=== PATIENT | male | born 1995 | race Caucasian/White ===

== ENCOUNTER 2021-08-30 11:13 | Emergency (ER) | payer OTHER, SELFPAY ==
[2021-08-30 11:22] VITALS: BP 144/90; PULSE 84; RESP 17; TEMP 36.9; O2SAT 98; BMI 28.8
--- NOTE | 2021-08-30 11:29 | ED_ITS ---
HPI - Dental/Oral General: Chief complaint: Dental/Oral Stated complaint: DENTAL/ORAL Time Seen by Provider: 08/30/21 11:29 Source: patient Mode of arrival: ambulatory Limitations: no limitations History of Present Illness: HPI Narrative: Patient is a 26-year-old male presents to ED today with a complaint of dental pain. Patient states approximately 3 days ago he had a dental procedure performed (unsure of what they actually did). He states he did not have any extractions but that the dentist drilled on his teeth and states the overall procedure was extremely uncomfortable. He states since then he has continued to have significant pain and feels like he is having left-sided facial swelling. He has tried OTC analgesics without much relief. MD Complaint: tooth pain Teeth map: 1. area of pain Duration: constant Severity: severe Relieving factors: nothing Exacerbating factors: nothing Context: history of dental caries Associated symptoms: Reports no associated symptoms; Denies ear or mastoid pain or fever(s) Treatment prior to arrival: oral analgesic Review of Systems Const: Denies: fever(s), chills, body aches, fatigue or malaise Eyes: Denies: change in vision, blurry vision, photophobia or eye discharge ENMT: Reports: dental pain; Denies: swelling of lips/tongue, oral sores, bleeding gums, ear or mastoid pain, nasal discharge or nasal congestion Card: Denies: chest pain Resp: Denies: dyspnea GI: Denies: abdominal pain, nausea or vomiting Musc: Denies: neck pain Skin/Breast: Denies: rash Neuro: Denies: headache(s) Physical Exam Const: COMMON NORMALS: no acute distress, average body habitus, patient oriented x3, no limitations, healthy appearing, alert and well nourished HENMT: COMMON NORMALS: normocephalic, atraumatic, hearing grossly normal bilaterally, external ears normal, EAC's normal, TM's normal bilaterally, Normal external nose present, Normal nasal mucous membranes and turbinates present, moist oral mucous membranes, oropharynx normal and gingiva normal HEAD & SCALP: normal to inspection, normocephalic and atraumatic FACE & SINUS: normal facial exam NOSE: Normal external nose present and Normal nasal mucous membranes and turbinates present EXTERNAL EAR: Yes external ears normal EXTERNAL AUDITORY CANAL: EAC's normal TYMPANIC MEMBRANE: TM's normal bilaterally MOUTH: Normal oral and palatal mucosa present, lip normal and tongue normal TEETH & GINGIVA: Yes other (several silver fillings noted; no severe decay; no obvious abscess) THROAT: posterior oropharynx normal, tonsils normal and uvula midline Eye: GENERAL EYE: appearance normal, both eyes and all related structures Neck/C-Spine: COMMON NORMALS: full ROM, no lymphadenopathy and no meningeal signs GENERAL: Yes normal visual inspection, No anterior neck swelling and No submandibular swelling Cardio: COMMON NORMALS: regular rate, regular rhythm and No murmurs present (Cardio) RATE: regular rate RHYTHM: regular rhythm Neuro: COMMON NORMALS: patient oriented x3 SENSORIUM/ORIENTATION: Yes alert MENINGEAL SIGNS: Yes no meningeal signs Skin: COMMON NORMALS: no rashes or lesions noted GENERAL SKIN EXAM: no rashes or lesions noted Course Vital Signs: Vital signs: Vital Signs Temperature 98.4 F 08/30/21 11:22 Pulse Rate 84 08/30/21 11:22 Respiratory Rate 17 08/30/21 11:22 Blood Pressure 144/90 08/30/21 11:22 Pulse Oximetry 98 08/30/21 11:22 Discharge Plan Discharge Patient Disposition: Home Clinical Impression: Toothache Condition: Stable Prescriptions: New ibuprofen 800 mg tablet 800 mg PO Q8H PRN (Reason: pain) Qty: 20 RF: 0 penicillin V potassium 500 mg tablet 500 mg PO Q8H 7 Days Qty: 21 RF: 0 tramadol 50 mg tablet 50 mg PO Q6H PRN (Reason: pain) Qty: 8 RF: 0 Discharge Orders: Discharge ED (Routine); Ordered 08/30/21 Ordered By: Deidra Sawyer Patient Instructions: Dental Caries (Cavities), Toothache (ED) Coding Level of Care Code ED Social Media Marketing Specialist for Ted Teague
== END 2021-08-30 11:50 | disposition home or self-care (01) ==
PROVIDERS: Emergency Provider Physician Assistant
DX: K08.89 Other specified disorders of teeth and supporting structures (principal)
CPT/HCPCS: 99281

== ENCOUNTER → 2021-09-27 11:39 | Outpatient (BNVA) | payer OTHER, SELFPAY | PROVIDERS: Visit Provider Nurse Practitioner Family | DX: R05.9 Cough, unspecified (principal) | CPT/HCPCS: 87635 ==

== ENCOUNTER → 2021-10-02 09:56 | Outpatient (BNVA) | payer OTHER, SELFPAY | PROVIDERS: Visit Provider Nurse Practitioner Family | DX: J40 Bronchitis, not specified as acute or chronic (principal); R05.9 Cough, unspecified | CPT/HCPCS: 71046; 80053; 87635 ==

== ENCOUNTER 2022-03-28 19:07 | Emergency (ER) | payer OTHER, MEDICAID, SELFPAY ==
[2022-03-28 19:24] VITALS: BP 156/99; PULSE 80; RESP 16; TEMP 36.5; O2SAT 96
--- NOTE | 2022-03-28 21:50 | W.ED.GENADLT ---
HPI - General Adult General: Chief complaint: General Medical Stated complaint: Legs swelling/pain Time Seen by Provider: 03/28/22 21:50 History of Present Illness: Mr Burt is a 36-year-old gentleman with complex past medical history presenting to the emergency department due to generalized symptoms. He endorses bilateral lower extremity swelling and discomfort that started gradually approximately 1 week ago. He endorses a history of DVT which was suspected to be provoked to the left lower extremity and has noticed some asymmetric swelling. He is not currently on anticoagulation. He also endorses a tick bite on his buttocks, he is unsure of exactly how long that was attached however did seek care and tick was removed and feels overall that this is improved. He endorses headache and generalized malaise. Subjective fevers and chills. Overall course of symptoms has persisted. Intensity is moderate. No other specific changes in health, exacerbating, or alleviating factors identified. Onset (ago): week(s) Severity: moderate Pain Consistency: constant Exacerbating factors: movement Review of Systems General: Reports: 10 or more systems reviewed and unremarkable except in HPI and below PFSH ED PFSH: Medical History (Updated 04/06/22 @ 00:00 by ) History of cervical fracture History of DVT (deep vein thrombosis) History of syphilis Social History Smoking and tobacco status: never smoked Physical Exam Const: COMMON NORMALS: alert GENERAL APPEARANCE: cooperative, well developed and ill appearing (Mildly) HENMT: COMMON NORMALS: normocephalic and atraumatic HEAD & SCALP: normocephalic and atraumatic Eye: COMMON NORMALS: conjunctivae normal CONJUNCTIVA: Yes conjunctivae normal SCLERA: sclerae normal Neck/C-Spine: COMMON NORMALS: supple GENERAL: Yes trachea midline Resp: COMMON NORMALS: normal respiratory effort and clear to auscultation bilaterally EFFORT & INSPECTION: Yes able to speak in complete sentences AUSCULTATION: clear to auscultation bilaterally Cardio: COMMON NORMALS: regular rate and regular rhythm RATE: regular rate RHYTHM: regular rhythm GI: COMMON NORMALS: Soft to palpation PALPATION: Yes Soft to palpation and No Tenderness to palpation present (GI) PERCUSSION: normal to percussion Extremity: GENERAL: Yes normal exam except as noted and No edema Neuro: COMMON NORMALS: moves all extremities SENSORIUM/ORIENTATION: Yes alert and No Orientation impaired Psych: COMMON NORMALS: mental status grossly normal and Normal thought process present THOUGHT PROCESS: Normal thought process present Skin: NARRATIVE SKIN EXAM: Small erythematous lesion remains from reported site of tick bite on right infra gluteal fold. No targetoid rash. Appears to be healing well without evidence of superimposed infection. Course ED course: - Patient was seen and evaluated by me at bedside - Patient placed on cardiac monitors, IV access obtained - Initial evaluation notable for exam as above - Labs and xrays personally interpreted by me -Fluids and symptom treatment ordered - Labs notable for no significant abnormality to explain symptoms, panel pending. - Imaging notable for no lobar consolidation or pneumothorax. Negative DVT study. - Upon serial reexamination after treatment the patient was improved - Based on patient history, evaluation, and testing as interpreted the most likely cause of the patient's condition is unclear, given generalized symptoms with history of tick bite and unknown attached time I will plan to treat empirically. Risk-benefit discussed. - The results of ED evaluation were discussed with the patient including prescriptions and/or symptomatic cares (if applicable) including appropriate and responsible use, followup plan, and return precautions. The patient verbalized understanding and felt safe for discharge. - Patient discharged in satisfactory condition. Note: Click bubbles or prepopulated more[place] in note writing are used for assistance with data collection and billing and are inherently more limited than narrative and other text portions of this note. Please use narrative for additional clinical history and defer to narrative/free test for any case of contradictory information. If information appears in only free text or click bubble it should be considered present or absent as reported. Please contact note typewriter operator automatic for clarifications of clinical information or contradictory information. MDM is a brief summary, contradictory or erroneous seeming information should be clarified and full note should be reviewed. Vital Signs: Vital signs: Vital Signs Temperature 98.3 F 03/29/22 00:43 Pulse Rate 62 03/29/22 02:10 Respiratory Rate 18 03/29/22 02:10 Blood Pressure 139/77 03/29/22 02:10 Pulse Oximetry 95 03/29/22 02:10 MDM - General Adult Medical Decision Making 36-year-old gentleman presenting with generalized symptoms and concern over leg swelling with history of DVT. Patient does have history of declined. Labs and imaging unremarkable. I will treat empirically with tick panel pending. Satisfactory for outpatient management. Medical Records I reviewed the patient's medical records. Lab Data I reviewed the patient's lab results. : 03/28/22 22:15 03/28/22 22:15 Radiology Impressions Venous Duplex 03/28/22 22:12 IMPRESSION: No evidence of deep vein thrombosis. Chest X-Ray 03/28/22 23:27 IMPRESSION: 1. No definite CHF or pneumonia. 2. Other findings discussed above. Laboratory Results WBC 9.9 10^3/uL (4.0-10.0) 03/28/22 22:15 RBC 4.85 10^6/uL (4.1-5.3) 03/28/22 22:15 Hgb 15.5 g/dL (11.7-16.6) 03/28/22 22:15 Hct 44.9 % (42.0-52.0) 03/28/22 22:15 MCV 92.6 fl (80-94) 03/28/22 22:15 MCH 32.0 pg (28.0-34.0) 03/28/22 22:15 MCHC 34.5 g/dL (30.0-36.0) 03/28/22 22:15 RDW 12.7 % (12.1-15.1) 03/28/22:15 Plt Count 309 10^3/cmm (130-400) 03/28/22 22:15 MPV 8.8 fL (7.4-10.4) 03/28/22 22:15 Neut % (Auto) 53.6 % 03/28/22 22:15 Lymph % (Auto) 29.9 % 03/28/22 22:15 Sharkey % (Auto) 11.1 % 03/28/22 22:15 Eos % (Auto) 4.0 % 03/28/22 22:15 Baso % (Auto) 0.7 % 03/28/22 22:15 Neut # (Auto) 5.33 10^3/uL (1.8-7.7) 03/28/22 22:15 Lymph # (Auto) 3.0 10^3/uL (0.8-4.8) 03/28/22 22:15 Sharkey # (Auto) 1.1 10^3/uL (0.2-0.9) H 03/28/22 22:15 Eos # (Auto) 0.4 10^3/uL (0.0-0.8) 03/28/22 22:15 Baso # (Auto) 0.1 10^3/uL (0.0-0.1) 03/28/22 22:15 Nucleated RBC % (auto) 0 % 03/28/22 22:15 Nucleated RBCs # 0.0 /100WBC 03/28/22 22:15 Sodium 142 mmol/L (136-145) 03/28/22 22:15 Potassium 4.4 mmol/L (3.5-5.1) 03/28/22 22:15 Chloride 107 mmol/L (98-107) 03/28/22 22:15 Carbon Dioxide 26 mmol/L (22-29) 03/28/22 22:15 Anion Gap 13.4 (5-19) 03/28/22 22:15 BUN 17 mg/dL (6-20) 03/28/22 22:15 Creatinine 0.9 mg/dL (0.7-1.2) 03/28/22 22:15 GFR Calculation 94.4 mL/min (90-130) 03/28/22 22:15 Glucose 98 mg/dL (65-115) 03/28/22 22:15 Calculated Osmolality 296 mOsm/kg (285-295) H 03/28/22 22:15 Lactate 1.1 mmol/L (0.5-2.2) 03/28/22 22:15 Calcium 9.3 mg/dL (8.5-10.5) 03/28/22 22:15 Total Bilirubin 0.2 mg/dL (0.15-1.2) 03/28/22 22:15 AST 18 U/L (0-40) 03/28/22 22:15 ALT 24 U/L (0-41) 03/28/22 22:15 Alkaline Phosphatase 88 IU/L (40-130) 03/28/22 22:15 Creatine Kinase 45 U/L (39-308) 03/28/22 22:15 NT-Pro-B Natriuret Pep 274 pg/mL (0-125) H 03/28/22 22:15 Total Protein 6.7 g/dL (6.6-8.7) 03/28/22 22:15 Albumin 4.1 g/dL (3.5-5.2) 03/28/22 22:15 Globulin 2.6 g/dL (1.3-4.6) 03/28/22 22:15 Procalcitonin 0.08 ng/mL (0-0.5) 03/28/22 22:15 Urine Color Yellow (Yellow) 03/28/22 23:35 Urine Appearance Clear (CLEAR) 03/28/22 23:35 Urine pH 6.5 (5-7) 03/28/22 23:35 Ur Specific [place] 1.020 (1.005-1.030) 03/28/22 23:35 Urine Protein Neg (Negative) 03/28/22 23:35 Urine Glucose (UA) Norm (Normal) 03/28/22 23:35 Urine Ketones Negative (Negative) 03/28/22 23:35 Urine Blood Neg (Negative) 03/28/22 23:35 Urine Nitrate Negative (Negative) 03/28/22 23:35 Urine Bilirubin Neg (Negative) 03/28/22 23:35 Urine Urobilinogen Norm mg/dL (Negative) 03/28/22 23:35 Ur Leukocyte Esterase Negative (Negative) 03/28/22 23:35 Urine Opiates Screen Positive ng/mL (Negative) H 03/28/22 23:35 Ur Barbiturates Screen Negative ng/mL (Negative) 03/28/22 23:35 Ur Phencyclidine Scrn Negative ng/mL (Negative) 03/28/22 23:35 Ur Amphetamines Screen Negative ng/mL (Negative) 03/28/22 23:35 U Benzodiazepines Scrn Negative ng/mL (Negative) 03/28/22 23:35 Urine Cocaine Screen Negative ng/mL (Negative) 03/28/22 23:35 U Marijuana (THC) Screen Negative ng/mL (Negative) 03/28/22 23:35 Lyme Ab (Western Blot) <0.90 index 03/28/22 22:15 Coronavirus 229E (PCR) Not detected (NOT DETECT) 03/28/22 23:15 E. chaffeensis IgG Ab <1:64 03/28/22 22:15 E. chaffeensis IgM Ab <1:20 03/28/22 22:15 E. chaffeensis Interp See note 03/28/22 22:15 E. chaffeensis Comment Not Reportable 03/28/22 22:15 Rickettsia IgG Ab Not detected 03/28/22 22:15 Rickettsia IgM Ab Not detected 03/28/22 22:15 SARS-CoV-2 (PCR) Not detected (NOT DETECT) 03/28/22 23:15 Discharge Plan Discharge Patient Disposition: Home Clinical Impression: Tick bite, Fatigue, Myalgia Condition: Stable Prescriptions: New doxycycline hyclate 100 mg tablet 100 mg PO Q12H 14 Days Qty: 28 0RF No Action albuterol sulfate [ProAir HFA] 90 mcg/actuation HFA aerosol inhaler 2 puff inhalation QID PRN (Reason: shortness of breath or wheezing) Qty: 8.5 6RF fluoxetine 60 mg tablet 60 mg PO QAM 30 Days Qty: 30 6RF clonazepam 1 mg tablet 1 mg PO TID 30 Days Qty: 90 0RF ketorolac 10 mg tablet 10 mg PO QID 5 Days Qty: 20 0RF cyclobenzaprine 10 mg tablet 10 mg PO TID PRN (Reason: muscle spasm) Qty: 90 0RF Discharge Orders: Discharge ED (Routine); Ordered 03/29/22 Ordered By: Yoshi Gill Discharge Diet: Usual diet Discharge Activity: Increase activity as tolerated Patient Instructions: Tick Bite (ED), Musculoskeletal Pain (ED), Leg Pain (ED), Opioid Safety Activity Restrictions/Additional Instructions: Thank you for visiting the emergency department. You were seen and evaluated for leg pain with swelling and generalized symptoms. The exact cause of your symptoms is unclear. No evidence of DVT was identified on ultrasound. If symptoms persist you should follow-up with your primary care provider for consideration of repeat ultrasound to further evaluate smaller calf veins. Given your history of tick bite and negative viral studies I will treat you with a course of antibiotics for possible tickborne illness. I will also prescribe ketorolac, do not combine this with other NSAIDs, please take either prescribed PPI or [id number] medication for GI protection while taking ketorolac. Please return to the emergency department for worsening symptoms or anything else that you are concerned about a feel needs emergency department evaluation. Stand Alone Forms: Work/School Release Coding Level of Care Code ED Bobcat Operator for Ted Fwd Exam Comprehensive
--- NOTE | 2022-03-28 22:12 | USR_ITS ---
PROCEDURE INFORMATION: Exam: US Duplex Lower Extremity Veins, Bilateral Exam date and time: 03/28/2022 10:34 PM Age: 36 years old Clinical indication: Swelling (edema) of limb; Lower extremity, bilateral; Additional info: Leg swelling, HX dvt TECHNIQUE: Imaging protocol: Real-time Duplex ultrasound of the bilateral extremities with 2-D redd scale, color Doppler flow and spectral waveform analysis with image documentation. Complete exam focused on the bilateral lower extremity veins. COMPARISON: No relevant prior studies available. FINDINGS: Right deep veins: Unremarkable. The common femoral, femoral, proximal profunda femoral and popliteal veins are patent without thrombus. Normal Doppler waveforms. Normal compressibility and/or augmentation response. Right superficial veins: Saphenofemoral junction is patent without thrombus. Left deep veins: Unremarkable. The common femoral, femoral, proximal profunda femoral and popliteal veins are patent without thrombus. Normal Doppler waveforms. Normal compressibility and/or augmentation response. Left superficial veins: Saphenofemoral junction is patent without thrombus. Soft tissues: Unremarkable. US/CV venous duplex [facility] [id number] IMPRESSION: No evidence of deep vein thrombosis.
[2022-03-28 22:26] LABS: Basophils # 0.1 10^3/uL (0.0-0.1); Basophils % 0.7 %; Eosinophils # 0.4 10^3/uL (0.0-0.8); Hematocrit 44.9 % (42.0-52.0); Hemoglobin 15.5 g/dL (11.7-16.6); Lymphocytes % 29.9 %; Mean Corpuscular HGB Conc 34.5 g/dL (30.0-36.0); Mean Corpuscular Volume 92.6 fl (80-94); Mean Platelet Volume 8.8 fL (7.4-10.4); Monocytes # 1.1 10^3/uL (0.2-0.9); Monocytes % 11.1 %; Neutrophils # 5.33 10^3/uL (1.8-7.7); Neutrophils % 53.6 %; Nucleated Red Blood Cells % 0 %; Platelet Count 309 10^3/cmm (130-400); Red Blood Count 4.85 10^6/uL (4.1-5.3); Red Cell Distribution Width 12.7 % (12.1-15.1); White Blood Count 9.9 10^3/uL (4.0-10.0)
[2022-03-28 22:49] LABS: Lactate (Lactic Acid level) 1.1 mmol/L (0.5-2.2)
[2022-03-28 22:59] LABS: NT Pro B Type Natriuretic Pept 274 pg/mL (0-125); Procalcitonin 0.08 ng/mL (0-0.5)
[2022-03-28 23:00] VITALS: RESP 14; O2SAT 99
[2022-03-28] MEDS: morphine 4 mg/mL SDV 1 mL IVP (23:00)
[2022-03-28 23:10] LABS: Alanine Aminotransferase 24 U/L (0-41); Albumin Level 4.1 g/dL (3.5-5.2); Alkaline Phosphatase 88 IU/L (40-130); Anion Gap 13.4 (5-19); Aspartate Amino Transferase 18 U/L (0-40); Blood Urea Nitrogen 17 mg/dL (6-20); Calcium 9.3 mg/dL (8.5-10.5); Carbon Dioxide 26 mmol/L (22-29); Chloride 107 mmol/L (98-107); Creatine Phosphokinase 45 U/L (39-308); Globulin 2.6 g/dL (1.3-4.6); Glomerular Filtration Rate 94.4 mL/min (90-130); Glucose 98 mg/dL (65-115); Osmolality Calculated 296 mOsm/kg (285-295); Potassium 4.4 mmol/L (3.5-5.1); Sodium 142 mmol/L (136-145); Total Bilirubin 0.2 mg/dL (0.15-1.2); Total Protein 6.7 g/dL (6.6-8.7)
[2022-03-28 23:19] VITALS: BP 130/90; PULSE 68; RESP 16; O2SAT 94
--- NOTE | 2022-03-28 23:27 | XRR_ITS ---
PROCEDURE INFORMATION: Exam: XR Chest Exam date and time: 03/28/2022 11:33 PM Age: 36 years old Clinical indication: Patient HX: Bilateral lower leg edema. TECHNIQUE: Imaging protocol: Radiologic exam of the chest. Views: 1 view. COMPARISON: CR XR chest 2V* [id number] 10/02/2021 10:03 AM FINDINGS: Lungs: No CHF/pulmonary edema. Poor inspiration somewhat limits evaluation, especially of the lung bases. Visible lungs appear essentially clear. Pleural spaces: No visible pneumothorax. No definite pleural fluid. Heart/Mediastinum: Heart size is likely upper range of normal/mildly prominent, allowing for poor inspiration. Bones/joints: No significant acute finding. XR/XR chest 1V portable [id number] IMPRESSION: 1. No definite CHF or pneumonia. 2. Other findings discussed above.
[2022-03-28 23:30] VITALS: BP 138/87; PULSE 71; RESP 14; O2SAT 95
[2022-03-28] MEDS: sodium chloride 0.9% 1,000 ML 999 ML IV (23:35)
[2022-03-28 23:42] LABS: Add Urine Microscopic? NO; Charge for UA Resulting for Rev
[2022-03-28 23:44] LABS: Bilirubin Urine Neg (Negative); Blood Urine Neg (Negative); Glucose Urine UA Norm (Normal); Ketones Urine Negative (Negative); Leukocyte Esterase Urine Negative (Negative); Nitrate Urine Negative (Negative); Protein Urine Neg (Negative); Urine Appearance Clear (CLEAR); Urine Color Yellow (Yellow); Urobilinogen Urine Norm (Negative); pH Urine 6.5 (5-7)
[2022-03-28 23:53] LABS: Amphetamines Screen Urine Negative (Negative); Barbiturates Screen Urine Negative (Negative); Benzodiazepines Screen Urine Negative (Negative); Cocaine Screen Urine Negative (Negative); Opiate Screen Urine Positive (Negative); PCP Screen Urine Negative (Negative); THC Screen Urine Negative (Negative)
[2022-03-29] MEDS: acetaminophen 500 mg Tablet 1000 MG PO
[2022-03-29] MEDS: ketorolac 30 mg/mL INJ 15 MG IVP
[2022-03-29 00:43] VITALS: BP 118/75; PULSE 60; RESP 14; TEMP 36.8; O2SAT 95
[2022-03-29 01:04] VITALS: BP 137/97; PULSE 62; RESP 17; O2SAT 95
[2022-03-29 01:08] LABS: Adenovirus Not Detected (NOT DETECT); Chlamydia Pneumoniae Not Detected (NOT DETECT); Coronavirus 229E,HKU1,NL63,OC4 Not Detected (NOT DETECT); Human Metapneumovirus Not Detected (NOT DETECT); Human Rhinovirus/Enterovirus Not Detected (NOT DETECT); Influenza A Not Detected (NOT DETECT); Influenza A H1 Not Detected (NOT DETECT); Influenza A H1-2009 Not Detected (NOT DETECT); Influenza A H3 Not Detected (NOT DETECT); Influenza B Not Detected (NOT DETECT); Mycoplasma Pneumoniae Not Detected (NOT DETECT); Parainfluenza Virus Type 1 Not Detected (NOT DETECT); Parainfluenza Virus Type 2 Not Detected (NOT DETECT); Parainfluenza Virus Type 3 Not Detected (NOT DETECT); Parainfluenza Virus Type 4 Not Detected (NOT DETECT); Respiratory Syncytial Virus A Not Detected (NOT DETECT); Respiratory Syncytial Virus B Not Detected (NOT DETECT); SARS-COV-2 Not Detected (NOT DETECT)
[2022-03-29 01:30] VITALS: BP 139/77; PULSE 62; RESP 18; O2SAT 95
[2022-03-29 02:10] VITALS: BP 139/77; PULSE 62; RESP 18; O2SAT 95
[2022-03-30 13:48] LABS: Lyme AB Screen <0.90 index
[2022-04-03 18:38] LABS: RMSF IGG NOT DETECTED; RMSF IGM NOT DETECTED
[2022-04-05 21:41] LABS: E. Chaffeensis AB IGG <1:64; E. Chaffeensis AB IGM <1:20
== END 2022-03-29 02:19 | disposition home or self-care (01) ==
PROVIDERS: Emergency Provider Emergency Medicine
DX: T14.8XXA Other injury of unspecified body region, initial encounter (principal); W57.XXXA Bitten or stung by nonvenomous insect and other nonvenomous arthropods, initial encounter; R53.83 Other fatigue; M79.10 Myalgia, unspecified site; M79.89 Other specified soft tissue disorders; Z86.718 Personal history of other venous thrombosis and embolism
CPT/HCPCS: 71045; 80053; 80306; 81003; 82550; 83605; 83880; 84145; 85025; 86618; 86666; 86757; 87635; 93970; 96361; 96374; 96375; 99284; J1885; J2270; J7030

== ENCOUNTER 2023-02-03 09:06 | Emergency (ER) | payer MEDICAID, SELFPAY ==
[2023-02-03 09:51] VITALS: BP 129/81; PULSE 89; TEMP 36.6; O2SAT 97; BMI 25.9
--- NOTE | 2023-02-03 10:25 | USR_ITS ---
PROCEDURE INFORMATION: Exam: US Right Non-Vascular Joint or Other Extremity Structure Exam date and time: 02/03/2023 11:07 AM Age: 37 years old Clinical indication: Cellulitis; Hand; Right; Additional info: Erythema, swelling, pain, right upper extremity TECHNIQUE: Imaging protocol: Right US joint or other nonvascular extremity structure or structures. Real-time ultrasound with image documentation. Limited study. Exam focused on the upper extremity in the region of clinical interest. COMPARISON: No relevant prior studies available. FINDINGS: Soft tissues: A complex structure is seen in the area of concern at the base of the thumb. There is a linear structure with internal linear echogenic densities with surrounding fluid. This finding may represent a tendon sheath.This finding measures 25 mm x 9 x 18.7 mm. If clinically indicated MRI examination of the right hand is suggested to clarify these findings US/US soft tissue/extremity [id number] IMPRESSION: Complex structure in area of concern rule out tendon injury. MRI examination is recommended if clinically indicated
[2023-02-03] MEDS: ketorolac 30 mg/mL INJ IVP (11:07)
[2023-02-03] MEDS: ceFAZolin 2,000 MG in sodium chloride 0.9% (plus) 50 ML 100 MG IV (11:07)
[2023-02-03] MEDS: levETIRAcetam 500 mg Tablet PO (11:07)
--- NOTE | 2023-02-03 13:00 | W.ED.EXTPRO ---
HPI - Extremity Problem General: Chief complaint: Extremity Problem,Nontraumatic Stated complaint: insect bite to right hand Time Seen by Provider: 02/03/23 10:03 History of Present Illness: Mr. Burt is a 37-year-old [id number] male that presents to the emergency department with right hand swelling, erythema, warmth. Onset of symptoms in the last week. He was seen by his PCP on Saturday and started on Bactrim. He reports that he started that Saturday. This morning he woke up with increased swelling redness and pain. Patient denies any injury to the extremity. He reports that he used prid on his right hand and wrapped it with an Richardson wrap. Symptoms only worsened. Patient denies nicotine or tobacco use, routine alcohol use or recreational drug use. Patient's history is seizures. He is concerned because he has not taken his morning dose of Keppra. Associated symptoms: Deny chest pain, fever(s) or rash Review of Systems General: Reports: 10 or more systems reviewed and unremarkable except in HPI and below Const: Denies: fever(s), chills, change in appetite, change in weight, fatigue or malaise Eyes: Denies: change in vision, eye discomfort, eye discharge or eye redness ENMT: Denies: throat pain, enlarged tonsils, odynophagia, hoarseness, ear or mastoid pain, ear discharge, change in hearing, tinnitus, nasal discharge, nasal congestion, post nasal drip or sinus pain Card: Denies: chest pain, palpitations, irregular heart rhythm, edema, dyspnea on exertion, orthopnea or leg pain with exertion Resp: Denies: dyspnea, productive cough, non-productive cough, wheezing, stridor or chest congestion GI: Denies: abdominal pain, nausea, vomiting, dysphagia, diarrhea, constipation, bloating, GI cramping or hematochezia : Denies: flank pain, dysuria, urinary frequency, urinary urgency, urinary hesitancy, oliguria or hematuria Musc: Denies: neck pain, back pain, extremity pain, joint pain, joint swelling, joint redness, joint warmth or muscle weakness Skin/Breast: Denies: rash, pruritus, erythema, photosensitivity or new lesions Neuro: Denies: headache(s), numbness in extremities, weakness in extremities, sensory changes, lack of coordination, difficulty walking, frequent falls, dizziness, confusion, Slurred speech present, difficulty communicating thoughts, seizure-like activity or involuntary movements Endo: Denies: polyuria, polydipsia or tired all the time Dylan/Lymph: Denies: easy bruising or easy bleeding PFSH ED PFSH: Medical History History of ankle fracture History of cervical fracture History of DVT (deep vein thrombosis) History of recurrent TIAs History of syphilis History of tibial fracture Seizure Surgical History History of hernia repair History of mandibular surgery Family History Father Cancer upper GI to prostate Other CAD (coronary artery disease) Dementia Diabetes Hyperlipidemia Hypertension Lung disease Psychiatric illness Stroke Denies family history of Clotting disorder Chronic kidney disease (CKD) Anesthesia complication Bleeding disorder Social History (Updated 01/14/23 @ 11:37 by Magaly Saab LPN) Smoking and tobacco status: current every day smoker cigarettes Alcohol intake: current Alcohol intake frequency: few times a week Alcohol type: beer Substance/Drug Use: current Substance/Drug use frequency: daily Caregiver/support person: No Lives independently: Yes Marital status: service: No Current occupational status: disabled Special esmer needs: No Agree to transfusion: Yes Physical Exam Const: COMMON NORMALS: no acute distress, patient oriented x3 and alert GENERAL APPEARANCE: cooperative ORIENTATION/CONSCIOUSNESS: Yes awake, Yes oriented to person, Yes oriented to place and Yes oriented to time HENMT: COMMON NORMALS: normocephalic and atraumatic HEAD & SCALP: normocephalic and atraumatic FACE & SINUS: normal facial exam MOUTH: Normal oral and palatal mucosa present THROAT: posterior oropharynx normal Eye: COMMON NORMALS: Equal, round and reactive pupils present, EOMs intact bilaterally, conjunctivae normal and no scleral icterus GENERAL EYE: appearance normal, both eyes and all related structures ALIGNMENT: Yes alignment normal PERIORBITAL: periorbital findings normal CONJUNCTIVA: Yes conjunctivae normal PUPIL: Yes Equal, round and reactive pupils present Neck/C-Spine: COMMON NORMALS: full ROM GENERAL: Yes normal visual inspection Lymph: LYMPHATIC: no lymphadenopathy noted Chest: COMMONS NORMALS: normal inspection of the chest Breast/axilla inspection: Yes no chest deformity, asymmetry, normal contours, no nodules, masses, tenderness Resp: COMMON NORMALS: normal respiratory effort, No retractions, No use of accessory muscles and clear to auscultation bilaterally EFFORT & INSPECTION: Yes able to speak in complete sentences and Yes symmetric chest movement AUSCULTATION: clear to auscultation bilaterally Cardio: COMMON NORMALS: regular rate, regular rhythm and Peripheral pulses 2+ throughout RATE: regular rate RHYTHM: regular rhythm PERIPHERAL PULSES: Peripheral pulses 2+ throughout GI: COMMON NORMALS: Normal to inspection, nondistended, normoactive bowel sounds present, Soft to palpation, non-tender and No hepatosplenomegaly present INSPECTION: Yes normal to inspection AUSCULTATION: Yes normoactive bowel sounds PALPATION: Yes Soft to palpation and Yes No hepatosplenomegaly present RECTAL EXAM: Yes deferred Extremity: COMMON NORMALS: normal to inspection GENERAL: Yes normal exam except as noted OTHER: Right upper extremity: Skin is clean dry and intact. He has pretty significant swelling and warmth to the extremity that extends into the forearm. There is erythema that appears to extend into the forearm as well but it is worse around the thumb of the right hand Patient is able to extend his wrist, give a thumbs up, make an okay sign, cross fingers, abduct fingers and make a fist Sensation is intact to light touch at radial, median, ulnar nerve distribution Radial pulses palpable and cap refills less than 3 seconds Neuro: COMMON NORMALS: patient oriented x3 SENSORIUM/ORIENTATION: Yes alert, Yes oriented to person, Yes oriented to place and Yes oriented to time CRANIAL NERVES: Yes CN normal except as noted Psych: COMMON NORMALS: mental status grossly normal, Normal thought process present, cooperative, activity/motor behavior normal, denies homicidal ideation and denies suicidal ideation THOUGHT PROCESS: Normal thought process present Skin: COMMON NORMALS: no rashes or lesions noted, no wounds and turgor normal GENERAL SKIN EXAM: no rashes or lesions noted and turgor normal Course Vital Signs: Vital signs: Vital Signs Temperature 97.9 F 02/03/23 09:51 Pulse Rate 89 02/03/23 09:51 Blood Pressure 129/81 02/03/23 09:51 Pulse Oximetry 97 02/03/23 09:51 Oxygen Delivery Me thod Room Air 02/03/23 09:51 MDM - Extremity (Nontraumatic) Medical Decision Making Patient was evaluated in the emergency department for complaints of worsening hand swelling erythema and warmth. This was despite his Bactrim use of 24 hours. Patient was concerned about not taking his Keppra this morning. I did provide him his morning dose of 500 mg. Also gave him IV antibiotics?cephalexin 2 g I did obtain an ultrasound of the extremity to assess for any localized abscess that could be evaluated further. CT revealed a complex structure in the area of concern. Wanted to rule out a tendon injury and MRI was not available. I ordered a CT of the extremity with contrast and discussed with the patient. Ultimately he declined and signed out AMA. I have advised patient to follow-up with his primary care doctor tomorrow. May return to the ER for new concerning or worsening symptoms Lab Data Radiology Impressions Soft Tissue Ultrasound 02/03/23 10:25 IMPRESSION: Complex structure in area of concern rule out tendon injury. MRI examination is recommended if clinically indicated Discharge Plan Discharge Patient Disposition: Left Against Medical Advice Clinical Impression: Hand joint pain Prescriptions: No Action fluoxetine 40 mg capsule 40 mg PO BID Qty: 120 0RF Rx Instructions: administer in the morning and at noon/midday emtricitabine-tenofovir (TDF) [Truvada] 200-300 mg tablet 1 tab PO DAILY Qty: 90 2RF levetiracetam [Keppra] 500 mg tablet 500 mg PO BID Qty: 180 0RF propranolol 40 mg tablet 40 mg PO BID Qty: 180 0RF meclizine 25 mg tablet 25 mg PO DAILY PRN (Reason: dizziness) Qty: 30 0RF sulfamethoxazole-trimethoprim [Bactrim DS] 800-160 mg tablet 1 tab PO BID 7 Days Qty: 14 0RF clonazepam 1 mg tablet 1 mg PO TID 30 Days Qty: 90 0RF sildenafil (pulm.hypertension) 20 mg tablet 100 mg PO ONCE Qty: 60 0RF Rx Instructions: take 30 minutes prior to intercourse. maximum 5 tablets in 24hrs Referrals: Addi Hoffman MD [Primary Care Provider] - Coding Level of Care Code ED Education Manager for Ted Teague
== END 2023-02-03 12:46 | disposition left against medical advice (07) ==
PROVIDERS: Emergency Provider Nurse Practitioner; PCP Family Medicine
DX: M25.541 Pain in joints of right hand (principal); Z53.21 Procedure and treatment not carried out due to patient leaving prior to being seen by health care provider; F17.210 Nicotine dependence, cigarettes, uncomplicated
CPT/HCPCS: 76882; 99284; J0690; J1885

== ENCOUNTER 2023-04-25 16:58 | Emergency (ER) | payer MEDICAID, SELFPAY ==
[2023-04-25 17:21] VITALS: BP 137/78; PULSE 85; RESP 16; TEMP 36.7; O2SAT 96; BMI 28.2
[2023-04-25 18:08] VITALS: BP 121/75; PULSE 80; RESP 18; O2SAT 97
[2023-04-25 18:08] LABS: Basophils # 0.1 10^3/uL (0.0-0.1); Basophils % 0.6 %; Eosinophils # 0.3 10^3/uL (0.0-0.8); Hematocrit 47.2 % (42.0-52.0); Hemoglobin 15.9 g/dL (11.7-16.6); Lymphocytes # 2.5 10^3/uL (0.8-4.8); Lymphocytes % 22.7 %; Mean Corpuscular HGB Conc 33.7 g/dL (30.0-36.0); Mean Corpuscular Hemoglobin 31.7 pg (28.0-34.0); Mean Corpuscular Volume 94.2 fl (80-94); Mean Platelet Volume 8.5 fL (7.4-10.4); Monocytes # 1.2 10^3/uL (0.2-0.9); Monocytes % 11.1 %; Neutrophils # 6.64 10^3/uL (1.8-7.7); Neutrophils % 59.6 %; Nucleated Red Blood Cells % 0.2 %; Platelet Count 330 10^3/cmm (130-400); Red Blood Count 5.01 10^6/uL (4.1-5.3); Red Cell Distribution Width 13.1 % (12.1-15.1); White Blood Count 11.2 10^3/uL (4.0-10.0)
[2023-04-25 18:36] LABS: Alanine Aminotransferase 38 U/L (0-41); Albumin Level 4.1 g/dL (3.5-5.2); Alkaline Phosphatase 96 U/L (40-130); Anion Gap 14.8 (5-19); Aspartate Amino Transferase 22 U/L (0-40); Blood Urea Nitrogen 18 mg/dL (6-20); Carbon Dioxide 28 mmol/L (22-29); Chloride 103 mmol/L (98-107); Creatinine Clr Calc Pharmacy 113.7984; Glomerular Filtration Rate 74.5 mL/min (90-130); Glucose 114 mg/dL (65-115); Magnesium 2.1 mg/dL (1.7-2.3); Osmolality Calculated 295 mOsm/kg (285-295); Potassium 4.8 mmol/L (3.5-5.1); Sodium 141 mmol/L (136-145); Total Bilirubin 0.2 mg/dL (0.15-1.2); Total Protein 6.1 g/dL (6.6-8.7)
--- NOTE | 2023-04-25 19:12 | W.ED.SEIZURE ---
HPI - Seizure General: Chief Complaint: Seizure Stated Complaint: can't remember last 2 hrs (has seizures) Time Seen by Provider: 04/25/23 17:27 History of Present Illness: HPI Narrative: 37-year-old male with history of seizure disorder presents emergency room with seizure activity that lasted less than 2 minutes while at home. Denies any head injury, neck pain, fever or chills. No nausea or vomiting. No tongue pain or tongue laceration. Patient further reviews that he has been taking his medication as directed Seizure History: Yes Place: Outdoors Associated symptoms: Deny chills, confusion or fever(s) Review of Systems General: Reports: 10 or more systems reviewed and unremarkable except in HPI and below Const: Denies: fever(s), chills, body aches or change in appetite Neuro: Denies: headache(s), numbness in extremities, weakness in extremities, sensory changes, lack of coordination, difficulty walking, frequent falls, dizziness, vertigo or confusion Psych: Denies: anxiety, depression, mood swings, panic attacks, sleeping less, sleeping more, hopelessness, loss of interest, change in appetite or irritability PFSH ED PFSH: Medical History History of ankle fracture History of cervical fracture History of DVT (deep vein thrombosis) History of recurrent TIAs History of syphilis History of tibial fracture Seizure Surgical History History of hernia repair History of mandibular surgery Family History Father Cancer upper GI to prostate Other CAD (coronary artery disease) Dementia Diabetes Hyperlipidemia Hypertension Lung disease Psychiatric illness Stroke Denies family history of Clotting disorder Chronic kidney disease (CKD) Anesthesia complication Bleeding disorder Social History Smoking and tobacco status: current every day smoker cigarettes Alcohol intake: current Alcohol intake frequency: few times a week Alcohol type: beer Substance/Drug Use: current Substance/Drug use frequency: daily Caregiver/support person: No Lives independently: Yes Marital status: service: No Current occupational status: disabled Special esmer needs: No Agree to transfusion: Yes Physical Exam Const: COMMON NORMALS: no acute distress, average body habitus, patient oriented x3, no limitations, healthy appearing, alert and well nourished OTHER: Patient is not postictal at this time. He was able to answer all my questions and follow commands. HENMT: COMMON NORMALS: normocephalic, atraumatic, hearing grossly normal bilaterally, external ears normal, EAC's normal, TM's normal bilaterally, Normal external nose present, Normal nasal mucous membranes and turbinates present, moist oral mucous membranes, oropharynx normal, dentition normal and gingiva normal HEAD & SCALP: normocephalic and atraumatic NOSE: Normal external nose present and Normal nasal mucous membranes and turbinates present EXTERNAL EAR: Yes external ears normal EXTERNAL AUDITORY CANAL: EAC's normal TYMPANIC MEMBRANE: TM's normal bilaterally Eye: COMMON NORMALS: Equal, round and reactive pupils present, EOMs intact bilaterally, conjunctivae normal, no scleral icterus, no papilledema, normal visual [place] by confrontation and fundi normal bilaterally CONJUNCTIVA: Yes conjunctivae normal PUPIL: Yes Equal, round and reactive pupils present DIRECT OPHTHALMOSCOPY: Yes no papilledema and Yes fundi normal bilaterally Neck/C-Spine: COMMON NORMALS: full ROM, no lymphadenopathy, supple, no meningeal signs, no JVD, Thyroid normal and No carotid bruits THYROID: Thyroid normal Chest: COMMONS NORMALS: normal inspection of the chest, normal palpation of entire chest wall, normal inspection of the breasts and normal palpation of the breasts Breast/axilla inspection: Yes normal inspection of the breasts BREAST/AXILLA PALPATION: Yes normal palpation of the breasts Resp: COMMON NORMALS: normal respiratory effort, No retractions, No use of accessory muscles, clear to auscultation bilaterally and percussion normal AUSCULTATION: clear to auscultation bilaterally PERCUSSION: percussion normal Cardio: COMMON NORMALS: no JVD : COMMON NORMALS: Yes no CVA tenderness BLADDER/KIDNEY EXAM: Yes no CVA tenderness Back/Pelvis: COMMON NORMALS: no CVA tenderness, thoracic and lumbar spine normal to inspection, no thoracic nor lumbar tenderness, thoraco-lumbar ROM normal and straight leg raise negative bilaterally Neuro: COMMON NORMALS: patient oriented x3 SENSORIUM/ORIENTATION: Yes alert MENINGEAL SIGNS: Yes no meningeal signs Course Vital Signs: Vital signs: Vital Signs Temperature 98.0 F 04/25/23 17:21 Pulse Rate 80 04/25/23 18:08 Respiratory Rate 18 04/25/23 18:08 Blood Pressure 121/75 04/25/23 18:08 Pulse Oximetry 97 04/25/23 18:08 Oxygen Delivery Me thod Room Air 04/25/23 18:08 MDM - Seizure MDM Narrative Medical decision making narrative: Patient was made comfort emergency room. Patient was given IV Keppra. Lab work discussed with patient at length. Close follow-up with neurologist recommended. Differential Diagnosis Seizure Differential Diagnosis: Likely intractable seizure disorder, febrile convulsion, focal seizure, generalized seizure, new onset seizure (Electrolyte abnormalities, drug abuse,), epileptic seizure and status epilepticus Lab Data 04/25/23 17:59 04/25/23 17:59 Labs: Laboratory Results WBC 11.2 10^3/uL (4.0-10.0) H 04/25/23 17:59 RBC 5.01 10^6/uL (4.1-5.3) 04/25/23 17:59 Hgb 15.9 g/dL (11.7-16.6) 04/25/23 17:59 Hct 47.2 % (42.0-52.0) 04/25/23 17:59 MCV 94.2 fl (80-94) H 04/25/23 17:59 MCH 31.7 pg (28.0-34.0) 04/25/23 17:59 MCHC 33.7 g/dL (30.0-36.0) 04/25/23 17:59 RDW 13.1 % (12.1-15.1) 04/25/23 17:59 Plt Count 330 10^3/cmm (130-400) 04/25/23 17:59 MPV 8.5 fL (7.4-10.4) 04/25/23 17:59 Neut % (Auto) 59.6 % 04/25/23 17:59 Lymph % (Auto) 22.7 % 04/25/23 17:59 Jerauld % (Auto) 11.1 % 04/25/23 17:59 Eos % (Auto) 3.0 % 04/25/23 17:59 Baso % (Auto) 0.6 % 04/25/23 17:59 Neut # (Auto) 6.64 10^3/uL (1.8-7.7) 04/25/23 17:59 Lymph # (Auto) 2.5 10^3/uL (0.8-4.8) 04/25/23 17:59 Jerauld # (Auto) 1.2 10^3/uL (0.2-0.9) H 04/25/23 17:59 Eos # (Auto) 0.3 10^3/uL (0.0-0.8) 04/25/23 17:59 Baso # (Auto) 0.1 10^3/uL (0.0-0.1) 04/25/23 17:59 Nucleated RBC % (auto) 0.2 % 04/25/23 17:59 Nucleated RBCs # 0.0 /100WBC 04/25/23 17:59 Sodium 141 mmol/L (136-145) 04/25/23 17:59 Potassium 4.8 mmol/L (3.5-5.1) 04/25/23 17:59 Chloride 103 mmol/L (98-107) 04/25/23 17:59 Carbon Dioxide 28 mmol/L (22-29) 04/25/23 17:59 Anion Gap 14.8 (5-19) 04/25/23 17:59 BUN 18 mg/dL (6-20) 04/25/23 17:59 Creatinine 1.1 mg/dL (0.7-1.2) 04/25/23 17:59 GFR Calculation 74.5 mL/min (90-130) L 04/25/23 17:59 Glucose 114 mg/dL (65-115) 04/25/23 17:59 Calculated Osmolality 295 mOsm/kg (285-295) 04/25/23 17:59 Calcium 9.0 mg/dL (8.5-10.5) 04/25/23 17:59 Magnesium 2.1 mg/dL (1.7-2.3) 04/25/23 17:59 Total Bilirubin 0.2 mg/dL (0.15-1.2) 04/25/23 17:59 AST 22 U/L (0-40) 04/25/23 17:59 ALT 38 U/L (0-41) 04/25/23 17:59 Alkaline Phosphatase 96 U/L (40-130) 04/25/23 17:59 Total Protein 6.1 g/dL (6.6-8.7) L 04/25/23 17:59 Albumin 4.1 g/dL (3.5-5.2) 04/25/23 17:59 Globulin 2.0 g/dL (1.3-4.6) 04/25/23 17:59 Discharge Plan Discharge Patient Disposition: Home Clinical Impression: Seizure Condition: Stable Prescriptions: No Action emtricitabine-tenofovir (TDF) [Truvada] 200-300 mg tablet 1 tab PO DAILY Qty: 90 2RF levetiracetam [Keppra] 500 mg tablet 500 mg PO BID Qty: 180 0RF meclizine 25 mg tablet 25 mg PO DAILY PRN (Reason: dizziness) Qty: 30 0RF sulfamethoxazole-trimethoprim [Bactrim DS] 800-160 mg tablet 1 tab PO BID 7 Days Qty: 14 0RF fluoxetine 40 mg capsule 40 mg PO BID Qty: 120 0RF Rx Instructions: administer in the morning and at noon/midday propranolol 40 mg tablet 40 mg PO BID Qty: 180 0RF sildenafil (pulm.hypertension) 20 mg tablet See Rx Instructions .ROUTE .COMPLEX Qty: 100 2RF Dose Instruction: TAKE 1 TABLET BY MOUTH ONCE FOR ED. TAKE 30 MINUTES PRIOR TO INTERCOURSE. MAX OF 5 DAYS IN 24 HOURS Rx Instructions: TAKE 1 TABLET BY MOUTH ONCE FOR ED. TAKE 30 MINUTES PRIOR TO INTERCOURSE. MAX OF 5 DAYS IN 24 HOURS clonazepam 1 mg tablet 1 mg PO TID Qty: 90 0RF Discharge Orders: Discharge ED (Routine); Ordered 04/25/23 Ordered By: Alvarez Montero Referrals: Addi Hoffman MD [Primary Care Provider] - Patient Instructions: Opioid Safety, Pain Management Coding Level of Care Code ED Phonograph Cartridge Assembler for Ted Teague
== END 2023-04-25 19:33 | disposition home or self-care (01) ==
PROVIDERS: Emergency Provider Family Medicine; PCP Family Medicine
DX: R56.9 Unspecified convulsions (principal)
CPT/HCPCS: 36415; 80053; 83735; 85025; 99284; J1953

== ENCOUNTER 2023-05-23 04:33 | Emergency (ER) | payer MEDICAID, SELFPAY ==
[2023-05-23 04:38] VITALS: BP 125/70; PULSE 81; RESP 16; TEMP 36.8; O2SAT 97; BMI 30.8
--- NOTE | 2023-05-23 04:45 | USR_ITS ---
PROCEDURE INFORMATION: Exam: US Duplex Lower Extremity Veins, Bilateral Exam date and time: 05/23/2023 5:35 AM Age: 38 years old Clinical indication: Pain; Leg, lower; Bilateral; Additional info: Swelling TECHNIQUE: Imaging protocol: Real-time duplex ultrasound of the bilateral extremities with 2-D redd scale, color Doppler flow and spectral waveform analysis including responses to compression and other maneuvers (when performed) with image documentation. Complete exam focused on the lower extremity veins. COMPARISON: No relevant prior studies available. FINDINGS: Right deep veins: Unremarkable. The common femoral, femoral, proximal profunda femoral and popliteal veins are patent without thrombus. Normal Doppler waveforms. Normal compressibility and/or augmentation response. Left deep veins: Unremarkable. The common femoral, femoral, proximal profunda femoral and popliteal veins are patent without thrombus. Normal Doppler waveforms. Normal compressibility and/or augmentation response. Superficial veins: Bilateral saphenofemoral junctions are patent without thrombus. Soft tissues: Unremarkable. US/CV venous duplex [facility] [id number] IMPRESSION: No evidence of deep vein thrombosis.
--- NOTE | 2023-05-23 04:50 | ED_ITS ---
HPI - Headache General: Chief Complaint: Headache Stated Complaint: leg swelling/migraines Time Seen by Provider: 05/23/23 04:41 Source: patient Mode of arrival: ambulatory Limitations: no limitations History of Present Illness: 38-year-old male has a history of migraines he states he had migraines for years takes Imitrex 40 states over the last 3 nights he has been having increased headache that is like his previous migraines he states it is currently a 7 out of 10 it is not his worst headache of his life. He states he is also been dealing with leg swelling over the last 6 months he said again over the last 2-3 nights he can wake up melanite with worsening bilateral leg pain and swelling and is concerned he may have a clot he denies any shortness of breath denies any fevers. Associated symptoms: Deny chest pain, fever(s), nausea, rash or vomiting Review of Systems Const: Denies: fever(s) or chills ENMT: Denies: throat pain or dental pain Card: Denies: chest pain Resp: Denies: dyspnea GI: Denies: abdominal pain, nausea, vomiting or diarrhea Musc: Reports: extremity swelling; Denies: neck pain or back pain Skin/Breast: Denies: rash Neuro: Reports: headache(s) PFSH ED PFSH: Medical History History of ankle fracture History of cervical fracture History of DVT (deep vein thrombosis) History of recurrent TIAs History of syphilis History of tibial fracture Seizure Surgical History History of hernia repair History of mandibular surgery Family History Father Cancer upper GI to prostate Other CAD (coronary artery disease) Dementia Diabetes Hyperlipidemia Hypertension Lung disease Psychiatric illness Stroke Denies family history of Clotting disorder Chronic kidney disease (CKD) Anesthesia complication Bleeding disorder Social History Smoking and tobacco status: current every day smoker cigarettes Alcohol intake: current Alcohol intake frequency: holidays/special occasions only Alcohol type: beer Substance/Drug Use: former Caregiver/support person: No Lives independently: Yes Marital status: service: No Current occupational status: disabled Special esmer needs: No Agree to transfusion: Yes Physical Exam Const: COMMON NORMALS: no acute distress, patient oriented x3 and healthy appearing HENMT: COMMON NORMALS: normocephalic and atraumatic HEAD & SCALP: normocephalic and atraumatic Eye: COMMON NORMALS: conjunctivae normal CONJUNCTIVA: Yes conjunctivae normal Neck/C-Spine: COMMON NORMALS: full ROM and supple Chest: COMMONS NORMALS: normal inspection of the chest Resp: COMMON NORMALS: normal respiratory effort Cardio: COMMON NORMALS: regular rate, regular rhythm and No murmurs present ( Cardio) RATE: regular rate RHYTHM: regular rhythm GI: COMMON NORMALS: Normal to inspection, nondistended, normoactive bowel sounds present, Soft to palpation, non-tender and no masses PALPATION: Yes Soft to palpation Extremity: COMMON NORMALS: normal to inspection and full ROM NARRATIVE EXTREMITY EXAM: No appreciated edema distal pulses palpable Neuro: COMMON NORMALS: patient oriented x3, moves all extremities and no focal motor deficits Psych: COMMON NORMALS: mental status grossly normal, Normal thought process present and cooperative THOUGHT PROCESS: Normal thought process present Skin: COMMON NORMALS: no rashes or lesions noted and no wounds GENERAL SKIN EXAM: no rashes or lesions noted Course Vital Signs: Vital signs: Vital Signs Temperature 98.3 F 05/23/23 04:38 Pulse Rate 81 05/23/23 04:38 Respiratory Rate 16 05/23/23 04:38 Blood Pressure 125/70 05/23/23 04:38 Pulse Oximetry 97 05/23/23 04:38 Oxygen Delivery Me thod Room Air 05/23/23 04:38 MDM - Headache Medical Decision Making Patient presents with headaches likely migraine headache he feels improved after Reglan Benadryl and Toradol blood work is normal no signs of subarachnoid hemorrhage or meningitis he has no severe swelling of his legs here distal pulses are palpable DVT study was negative bilaterally he is stable for discharge she is to follow-up with PCP and return if worsening he understands agrees to plan. Medical Records I reviewed the patient's medical records. Lab Data I reviewed the patient's lab results. 05/23/23 05:09 05/23/23 05:09 Laboratory Results WBC 9.4 10^3/uL (4.0-10.0) 05/23/23 05:09 RBC 4.65 10^6/uL (4.1-5.3) 05/23/23 05:09 Hgb 14.8 g/dL (11.7-16.6) 05/23/23 05:09 Hct 43.6 % (42.0-52.0) 05/23/23 05:09 MCV 93.8 fl (80-94) 05/23/23 05:09 MCH 31.8 pg (28.0-34.0) 05/23/23 05:09 MCHC 33.9 g/dL (30.0-36.0) 05/23/23 05:09 RDW 13.0 % (12.1-15.1) 05/23/23 05:09 Plt Count 292 10^3/cmm (130-400) 05/23/23 05:09 MPV 8.6 fL (7.4-10.4) 05/23/23 05:09 Neut % (Auto) 49.0 % 05/23/23 05:09 Lymph % (Auto) 33.0 % 05/23/23 05:09 Boundary % (Auto) 10.2 % 05/23/23 05:09 Eos % (Auto) 6.0 % 05/23/23 05:09 Baso % (Auto) 0.5 % 05/23/23 05:09 Neut # (Auto) 4.60 10^3/uL (1.8-7.7) 05/23/23 05:09 Lymph # (Auto) 3.1 10^3/uL (0.8-4.8) 05/23/23 05:09 Boundary # (Auto) 1.0 10^3/uL (0.2-0.9) H 05/23/23 05:09 Eos # (Auto) 0.6 10^3/uL (0.0-0.8) 05/23/23 05:09 Baso # (Auto) 0.1 10^3/uL (0.0-0.1) 05/23/23 05:09 Nucleated RBC % (auto) 0 % 05/23/23 05:09 Nucleated RBCs # 0.0 /100WBC 05/23/23 05:09 Sodium 141 mmol/L (136-145) 05/23/23 05:09 Potassium 4.4 mmol/L (3.5-5.1) 05/23/23 05:09 Chloride 108 mmol/L (98-107) H 05/23/23 05:09 Carbon Dioxide 23 mmol/L (22-29) 05/23/23 05:09 Anion Gap 14.4 (5-19) 05/23/23 05:09 BUN 19 mg/dL (6-20) 05/23/23 05:09 Creatinine 1.1 mg/dL (0.7-1.2) 05/23/23 05:09 GFR Calculation 74.1 mL/min (90-130) L 05/23/23 05:09 Glucose 154 mg/dL (65-115) H 05/23/23 05:09 Calculated Osmolality 297 mOsm/kg (285-295) H 05/23/23 05:09 Calcium 8.5 mg/dL (8.5-10.5) 05/23/23 05:09 Total Bilirubin 0.2 mg/dL (0.15-1.2) 05/23/23 05:09 AST 23 U/L (0-40) 05/23/23 05:09 ALT 29 U/L (0-41) 05/23/23 05:09 Alkaline Phosphatase 88 U/L (40-130) 05/23/23 05:09 NT-Pro-B Natriuret Pep 36 pg/mL (0-125) 05/23/23 05:09 Total Protein 6.3 g/dL (6.6-8.7) L 05/23/23 05:09 Albumin 3.8 g/dL (3.5-5.2) 05/23/23 05:09 Globulin 2.5 g/dL (1.3-4.6) 05/23/23 05:09 Discharge Plan Discharge Patient Disposition: Home Clinical Impression: Headache, Leg pain, bilateral Condition: Stable Prescriptions: New Naprosyn 500 mg tablet 500 mg PO BID PRN (Reason: pain) Qty: 20 0RF No Action emtricitabine-tenofovir (TDF) [Truvada] 200-300 mg tablet 1 tab PO DAILY Qty: 90 2RF levetiracetam [Keppra] 500 mg tablet 500 mg PO BID Qty: 180 0RF meclizine 25 mg tablet 25 mg PO DAILY PRN (Reason: dizziness) Qty: 30 0RF sumatriptan succinate 50 mg tablet See Rx Instructions PO .COMPLEX Qty: 30 0RF Rx Instructions: take 1 tab at onset of headache; if no relief may repeat 1 tab after at least 2 hrs; max = 4 tabs/24 hr PO pantoprazole [Protonix] 40 mg tablet,delayed release (DR/EC) 40 mg PO DAILY Qty: 14 0RF fluoxetine 40 mg capsule 40 mg PO BID Qty: 120 0RF Rx Instructions: administer in the morning and at noon/midday propranolol 40 mg tablet 40 mg PO BID Qty: 180 0RF sildenafil (pulm.hypertension) 20 mg tablet See Rx Instructions .ROUTE .COMPLEX Qty: 100 2RF Dose Instruction: TAKE 1 TABLET BY MOUTH ONCE FOR ED. TAKE 30 MINUTES PRIOR TO INTERCOURSE. MAX OF 5 DAYS IN 24 HOURS Rx Instructions: TAKE 1 TABLET BY MOUTH ONCE FOR ED. TAKE 30 MINUTES PRIOR TO INTERCOURSE. MAX OF 5 DAYS IN 24 HOURS clonazepam 1 mg tablet 1 mg PO TID Qty: 90 0RF Discharge Orders: Discharge ED (Routine); Ordered 05/23/23 Ordered By: Gloria Knowles Referrals: Addi Hoffman MD [Primary Care Provider] - 1-3 days Discharge Diet: Advance as tolerated Discharge Activity: Resume usual activity Patient Instructions: Leg Pain (ED), General Headache (ED) Coding Level of Care Code ED Instructor Extension Work for Ted Teague
[2023-05-23] MEDS: metoclopramide 5 mg/mL SDV 2 mL 10 MG IVP (04:52)
[2023-05-23] MEDS: diphenhydrAMINE 50 mg/mL SDV 1mL IVP (04:52)
[2023-05-23] MEDS: ketorolac 30 mg/mL INJ IVP (05:07)
[2023-05-23 05:18] LABS: Basophils # 0.1 10^3/uL (0.0-0.1); Basophils % 0.5 %; Eosinophils # 0.6 10^3/uL (0.0-0.8); Hematocrit 43.6 % (42.0-52.0); Hemoglobin 14.8 g/dL (11.7-16.6); Lymphocytes # 3.1 10^3/uL (0.8-4.8); Mean Corpuscular HGB Conc 33.9 g/dL (30.0-36.0); Mean Corpuscular Hemoglobin 31.8 pg (28.0-34.0); Mean Corpuscular Volume 93.8 fl (80-94); Mean Platelet Volume 8.6 fL (7.4-10.4); Monocytes % 10.2 %; Nucleated Red Blood Cells % 0 %; Platelet Count 292 10^3/cmm (130-400); Red Blood Count 4.65 10^6/uL (4.1-5.3); White Blood Count 9.4 10^3/uL (4.0-10.0)
[2023-05-23 05:48] LABS: Alanine Aminotransferase 29 U/L (0-41); Albumin Level 3.8 g/dL (3.5-5.2); Alkaline Phosphatase 88 U/L (40-130); Blood Urea Nitrogen 19 mg/dL (6-20); Calcium 8.5 mg/dL (8.5-10.5); Carbon Dioxide 23 mmol/L (22-29); Chloride 108 mmol/L (98-107); Globulin 2.5 g/dL (1.3-4.6); Glomerular Filtration Rate 74.1 mL/min (90-130); Glucose 154 mg/dL (65-115); NT Pro B Type Natriuretic Pept 36 pg/mL (0-125); Osmolality Calculated 297 mOsm/kg (285-295); Sodium 141 mmol/L (136-145); Total Bilirubin 0.2 mg/dL (0.15-1.2); Total Protein 6.3 g/dL (6.6-8.7)
[2023-05-23 05:49] LABS: Anion Gap 14.4 (5-19); Aspartate Amino Transferase 23 U/L (0-40); Potassium 4.4 mmol/L (3.5-5.1)
[2023-05-23 06:00] VITALS: BP 129/75; PULSE 87; RESP 16; O2SAT 97
== END 2023-05-23 06:06 | disposition home or self-care (01) ==
PROVIDERS: Emergency Provider Emergency Medicine; PCP Family Medicine
DX: R51.9 Headache, unspecified (principal); M79.605 Pain in left leg; M79.604 Pain in right leg; F17.210 Nicotine dependence, cigarettes, uncomplicated
CPT/HCPCS: 80053; 83880; 85025; 93970; 96374; 96375; 99284; J1200; J1885; J2765

== ENCOUNTER 2024-02-05 14:51 | Outpatient (CLI) | payer MEDICAID, SELFPAY ==
[2024-02-05] MEDS: iohexol 350 mg/mL 500 mL Btl (per mL) PO (15:57)
[2024-02-05] MEDS: iohexol 350 mg/mL 500 mL Btl (per mL) IV (15:57)
--- NOTE | 2024-02-05 16:30 | CT_ITS ---
WS: [id number] CT ABDOMEN AND PELVIS WITH CONTRAST HISTORY: hernia TECHNIQUE: Imaging performed of the abdomen and pelvis with IV contrast. Single phase imaging of the abdomen. Coronal and sagittal reformats are submitted. All CT scans at [facility] use at [address] one of these dose optimization techniques: automated exposure control; mA and/or kV adjustment per patient size (includes targeted exams where dose is matched to clinical indication); or iterative re construction. IV CONTRAST: Omnipaque 350; 100 mL IV. Oral contrast: Yes. DLP: 880.25 mGy.cm COMPARISON: None available. Lower thorax: Lung bases are clear. Heart is normal size. Small hiatal hernia. Liver/biliary system: Normal size with no intrahepatic dilatation. Gallbladder: Normal. No gallstones or wall thickening. No pericholecystic fluid. Pancreas: Normal size pancreas and pancreatic duct. No adjacent inflammation. Spleen: Normal size spleen. No mass or infarct. Adrenal glands: Normal. Right kidney: Normal. Left kidney: Normal. Aorta: Normal. Lymphadenopathy: No adenopathy. There is a small RIGHT external iliac chain lymph node which is fausto l size. Free fluid: None. GI tract: Normally distended stomach. No small bowel obstruction. Normal appendix. No colitis or obst ruction. Abdominal wall: Fat containing umbilical hernia. Pelvis: No free fluid or adenopathy within the pelvis. No significant inguinal hernia identified. The re may be slight omental fat extending into the proximal LEFT inguinal region. Bones: Unremarkable. IMPRESSION: 1. No acute abdominal pelvic abnormalities. 2. Very small umbilical hernia contains fat only. 3. No significant inguinal hernia. No adenopathy. 4. Normal appendix.
== END 2024-02-05 14:52 | disposition home or self-care (01) ==
LOC: RAD 14:52
PROVIDERS: PCP Family Medicine; Visit Provider Surgery
DX: K42.9 Umbilical hernia without obstruction or gangrene (principal)
CPT/HCPCS: 74177; Q9967

== ENCOUNTER 2024-02-28 14:01 | Outpatient (CLI) | payer MEDICAID, SELFPAY ==
--- NOTE | 2024-02-28 14:00 | US_ITS ---
WS: [id number] SCROTAL ULTRASOUND EXAMINATION CLINICAL INFORMATION: left testicular pain COMPARISON: None. FINDINGS: TESTES Normal in size and echotexture, without focal lesion. Color Doppler: Normal color Doppler flow pattern. Right testes size: 4.0 cm x 3.0 cm x 2.1 cm. Left testes size: 3.9 cm x 3.0 cm x 2.2 cm. EPIDIDYMIDES Normal in size and echotexture, without focal lesion. Color Doppler: Normal color Doppler flow pattern. Right epididymis size: 0.5 cm x 0.7 cm x 0.9 cm. Left epididymis size: 0.9 cm x 1.0 cm x 1.0 cm. HYDROCELE None. VARICOCELE None. OTHER FINDINGS None. US/US scrotum [id number] IMPRESSION: Normal ultrasound scrotum
== END 2024-02-28 14:02 | disposition home or self-care (01) ==
LOC: RAD 14:01
PROVIDERS: PCP Family Medicine; Visit Provider Surgery
DX: N50.812 Left testicular pain (principal)
CPT/HCPCS: 76870

== ENCOUNTER → 2024-04-22 13:36 | Outpatient (BNVA) | payer MEDICAID, SELFPAY | PROVIDERS: PCP Family Medicine; Visit Provider Nurse Practitioner Family | DX: M25.512 Pain in left shoulder (principal) | CPT/HCPCS: 73030 ==

== ENCOUNTER → 2024-12-10 08:08 | Outpatient (BNVA) | payer MEDICAID, SELFPAY | PROVIDERS: PCP Family Medicine; Visit Provider Family Medicine | DX: I10 Essential (primary) hypertension (principal); N52.9 Male erectile dysfunction, unspecified | CPT/HCPCS: 80053; 80061; 83036; 84403; 84439; 84443; 85025 ==

== ENCOUNTER 2024-12-29 04:21 | Emergency (ER) | payer MEDICAID, SELFPAY ==
[2024-12-29] VITALS (8 sets, daily range): BP systolic 123–182; BP diastolic 86–130; PULSE 79–88; RESP 16–24; TEMP 37.1; O2SAT 95–99; BMI 33.9
--- NOTE | 2024-12-29 04:40 | XRR_ITS ---
PROCEDURE INFORMATION: Exam: XR Chest Exam date and time: 12/29/2024 4:53 AM Age: 39 years old Clinical indication: Chest pressure and chest wall pain; Additional info: Chest pain TECHNIQUE: Imaging protocol: Radiologic exam of the chest. Views: 1 view. COMPARISON: CR XR chest 1V portable [id number] 03/28/2022 11:33 PM FINDINGS: Lungs: Unremarkable. No consolidation. Pleural spaces: Unremarkable. No pleural effusion. No pneumothorax. Heart/Mediastinum: Unremarkable. No cardiomegaly. Bones/joints: Unremarkable. XR/XR chest 1V portable [id number] IMPRESSION: No acute findings.
--- NOTE | 2024-12-29 04:41 | ECG_ITS ---
[facility] Test Date: 2024-12-29 Pat Name: Joaquín Burt Department: Room: Gender: Male Rn Traveling: : 1985-05-01 Requested By: Radha Baxter Order Number: [id number] Mckeon MD: Kayla Morales M.D. Measurements Intervals [place] Rate: 88 P: 44 RI: 178 QRS: 48 QRSD: 97 T: -2 QT: 360 QTc: 436 Interpretive Statements SINUS RHYTHM No previous ECG available for comparison Electronically Signed On 12-29-2024 19:19:11 CDT by Kayla Morales M.D. [email or web address]
--- NOTE | 2024-12-29 04:54 | ED_ITS ---
Documented by User: Radha Liang MD 12/29/24 05:03 HPI - General Adult 2 General: Chief complaint: General Medical Stated complaint: Heartburn\High BP\Headache Time Seen by Provider: 12/29/24 04:35 History of Present Illness: 39-year-old man with a history of migrai ash, who presents emergency room with indigestion, hypertension and migraine. He says he woke up with a migraine and indigestion. He checked his blood pressure and it was elevated at home. 170s over 1 teens. No cardiac history. Related Data Home Medications ?Medication ?Instructions ?Recorded ?Confirmed clonazepam 1 mg tablet 1 mg PO TID PRN Anxiety 12/1212/29/24 Previous Rx's ?Medication ?Instructions ?Recorded meclizine 25 mg tablet 25 mg PO DAILY PRN dizziness #30 12/21/22 tabs pantoprazole 40 mg tablet,delayed 40 mg PO DAILY PRN a diana reflux #60 10/26/24 release (Protonix) tabs emtricitabine 200 mg-tenofovir 1 tab PO DAILY #90 tabs 12/09/24 disoproxil fumarate 300 mg tablet (Truvada) fluoxetine 40 mg capsule 40 mg PO BID #180 caps 12/09 hydrochlorothiazide 12.5 mg tablet 12.5 mg PO DAILY 30 days #90 tabs 12/09/24 levetiracetam 1,000 mg tablet 1,000 mg PO BID #180 tab s 12/09/24 propranolol 40 mg tablet 40 mg PO BID #180 tabs 12/09 sumatriptan succinate 50 mg tablet See Rx Instructions PO .COMPLEX 12/09/24 #30 tabs sildenafil 100 mg tablet (Viagra) 100 mg PO DAILY PRN sexual 12/16/24 activity #30 tabs amlodipine 2.5 mg tablet 2.5 mg PO DAILY #30 tabs sucralfate 1 gram tablet (Carafate) 1 g PO Q6H 4 weeks #112 tabs 12/29/24 Allergies Allergy/AdvReac Type Severity Reaction Status Date / Time No Known Allergies Allergy Verified 12/29/24 04:39 Review of Systems 2 Narrative: Constitutional symptoms: Negative except as documented in HPI. Skin symptoms: Negative except as documented in HPI. Eye symptoms: Negative except as documented in HPI. ENMT symptoms: Negative except as documented in HPI. Respiratory symptoms: Negative except as documented in HPI. Cardiovascular symptoms: Negative except as documented in HPI. Gastrointestinal symptoms: Negative except as documented in HPI. Genitourinary symptoms: Negative except as documented in HPI. Musculoskeletal symptoms: Negative except as documented in HPI. Neurologic symptoms: Negative except as documented in HPI. Psychiatric symptoms: Negative except as documented in HPI. Endocrine symptoms: Negative except as documented in HPI. PFSH ED 2 PFSH: Medical History History of ankle fracture History of tibial fracture History of recurrent TIAs Seizure History of DVT (deep vein thrombosis) History of cervical fracture History of syphilis Surgical History History of hernia repair History of mandibular surgery Family History Father Cancer upper GI to prostate Other CAD (coronary artery disease) Dementia Diabetes Hyperlipidemia Hypertension Lung disease Psychiatric illness Stroke Denies family history of Clotting disorder Chronic kidney disease (CKD) Anesthesia complication Bleeding disorder Social History Smoking and tobacco/nicotine status: current every day tobacco/nicotine user cigarettes Packs smoked per day: 0.5 Alcohol intake: current Alcohol intake frequency: holidays/special occasions only Alcohol type: beer Substance/Drug Use: former Caregiver/support person: No Lives independently: Yes Marital status: service: No Current occupational status: disabled Current gender identity: Male Special esmer needs: No Agree to transfusion: Yes Physical Exam 2 Narrative: EXAM NARRATIVE: General: Alert, no acute distress. Skin: Warm, dry. Head: Normocephalic, atraumatic. Neck: Supple, trachea midline. Eye: Extraocular movements are intact. Ears, nose, mouth and throat: mucosa moist. Cardiovascular: Regular, Normal peripheral perfusion. Respiratory: Lungs are clear to auscultation, respirations are non-labored, breath sounds are equal, Symmetrical chest wall expansion. Gastrointestinal: Soft, Nontender, Non distended Musculoskeletal: Normal ROM, no deformity. Neurological: Alert and oriented, No focal neurological deficit observed. Psychiatric: Cooperative, appropriate mood & affect. Course 2 Vital Signs: Vital signs: Vital Signs Temperature 98.7 F 12/29/24 04:36 Pulse Rate 86 12/29/24 09:20 Respiratory Rate 24 H 12/29/24 08:00 Blood Pressure 123/92 12/29/24 09:20 Pulse Oximetry 95 12/29/24 09:20 Oxygen Delivery Me thod Room Air 12/29/24 04:36 MDM - General Adult Medical Decision Making Differential diagnosis for patient with chest pain includes but is not limited to and based on the above HPI, review of systems and physical exam: Pneumonia. unstable angina. angina. Acute coronary syndrome / PR. Pulmonary embolism. Costochondritis / musculoskeletal. Pleurisy. Pericarditis. Esophageal spasm. Pancreatis. Cholecystitis. Orders placed to evaluate differential diagnosis based on the above differential, HPI and physical exam Lab Data 12/29/24 04:45 12/29/24 04:45 Radiology Impressions Chest X-Ray 12/29/24 04:40 IMPRESSION: No acute findings. Laboratory Results WBC 14.56 10^3/uL (3.29-11.43) H 12/29/24 04:45 RBC 5.50 10^6/uL (3.85-5.65) 12/29/24 04:45 Hgb 16.20 g/dL (11.27-16.99) 12/29/24 04:45 Hct 47.6 % (37-53) 12/29/24 04:45 MCV 86.5 fl (82-101) 12/29/24 04:45 MCH 29.5 pg (27-33) 12/29/24 04:45 MCHC 34.0 g/dL (30-55) 12/29/24 04:45 RDW 13.7 % (12.1-15.1) 12/29/24 04:45 Plt Count 330 10^3/cmm (157-399) 12/29/24 04:45 MPV 8.7 fL (7.4-10.4) 12/29/24 04:45 Neut % (Auto) 71.6 % 12/29/24 04:45 Lymph % (Auto) 16.3 % 12/29/24 04:45 [place] % (Auto) 9.5 % 12/29/24 04:45 Eos % (Auto) 1.8 % 12/29/24 04:45 Baso % (Auto) 0.3 % 12/29/24 04:45 Neut # (Auto) 10.43 10^3/uL (1.8-7.7) H 12/29/24 04:45 Lymph # (Auto) 2.4 10^3/uL (0.8-4.8) 12/29/24 04:45 [place] # (Auto) 1.4 10^3/uL (0.2-0.9) H 12/29/24 04:45 Eos # (Auto) 0.3 10^3/uL (0.0-0.8) 12/29/24 04:45 Baso # (Auto) 0.0 10^3/uL (0.0-0.1) 12/29/24 04:45 Nucleated RBC % (auto) 0 % 12/29/24 04:45 Nucleated RBCs # 0.0 /100WBC 12/29/24 04:45 Sodium 141 mmol/L (136-145) 12/29/24 04:45 Potassium 4.4 mmol/L (3.5-5.1) 12/29/24 04:45 Chloride 104 mmol/L (98-107) 12/29/24 04:45 Carbon Dioxide 25 mmol/L (22-29) 12/29/24 04:45 Anion Gap 16.4 (5-19) 12/29/24 04:45 BUN 18 mg/dL (6-20) 12/29/24 04:45 Creatinine 1.0 mg/dL (0.7-1.2) 12/29/24 04:45 GFR Calculation 82.3 mL/min (90-130) L 12/29/24 04:45 Glucose 102 mg/dL (65-115) 12/29/24 04:45 Calculated Osmolality 294 mOsm/kg (285-295) 12/29/24 04:45 Calcium 10.7 mg/dL (8.5-10.5) H 12/29/24 04:45 Total Bilirubin 0.4 mg/dL (0.15-1.2) 12/29/24 04:45 AST 21 U/L (0-40) 12/29/24 04:45 ALT 27 U/L (0-41) 12/29/24 04:45 Alkaline Phosphatase 105 U/L (40-130) 12/29/24 04:45 Troponin T Baseline 9 ng/L (0-15) 12/29/24 04:45 Troponin T 120 Minute 7.80 ng/L (0-15) 12/29/24 07:00 Delta Troponin T -1.20 ABS# (0-10) L 12/29/24 07:00 Total Protein 6.9 g/dL (6.6-8.7) 12/29/24 04:45 Albumin 4.5 g/dL (3.5-5.2) 12/29/24 04:45 Globulin 2.4 g/dL (1.3-4.6) 12/29/24 04:45 Discharge Plan Discharge Patient Disposition: Home Clinical Impression: Atypical chest pain, Chest pain due to GERD, Benign essential HTN Condition: Stable Prescriptions: New sucralfate [Carafate] 1 gram tablet 1 g PO Q6H 28 Days Qty: 112 0RF amlodipine 2.5 mg tablet 2.5 mg PO DAILY Qty: 30 0RF No Action meclizine 25 mg tablet 25 mg PO DAILY PRN (Reason: dizziness) Qty: 30 0RF emtricitabine-tenofovir (TDF) [Truvada] 200-300 mg tablet 1 tab PO DAILY Qty: 90 2RF hydrochlorothiazide 12.5 mg tablet 12.5 mg PO DAILY 30 Days Qty: 90 1RF fluoxetine 40 mg capsule 40 mg PO BID Qty: 180 1RF Rx Instructions: administer in the morning and at noon/midday levetiracetam 1,000 mg tablet 1,000 mg PO BID Qty: 180 1RF propranolol 40 mg tablet 40 mg PO BID Qty: 180 1RF sumatriptan succinate 50 mg tablet See Rx Instructions PO .COMPLEX Qty: 30 0RF Rx Instructions: take 1 tab at onset of headache; if no relief may repeat 1 tab after at least 2 hrs; max = 4 tabs/24 hr PO sildenafil [Viagra] 100 mg tablet 100 mg PO DAILY PRN (Reason: sexual activity) Qty: 30 0RF Rx Instructions: administer 30 minutes to 4 hours before activity pantoprazole [Protonix] 40 mg tablet,delayed release (DR/EC) 40 mg PO DAILY PRN (Reason: acid reflux) Qty: 60 0RF clonazepam 1 mg tablet 1 mg PO TID PRN (Reason: Anxiety) Discharge Orders: Discharge ED (Routine); Ordered 12/29/24 Ordered By: Fidel Frey Referrals: Addi Hoffman MD [Primary Care Provider] - Discharge Diet: As Directed Discharge Activity: Resume usual activity Patient Instructions: Diet for Stomach Ulcers and Gastritis (ED), GERD (Gastroesophageal Reflux Disease) (ED), Opioid Safety, Pain Management Activity Restrictions/Additional Instructions: Thank you for choosing [facility] for your healthcare needs today. It is very important that you follow up as instructed or that you return to the Emergency Department should you have concerns or if your condition changes or worsens in any way. You were seen in the emergency room with complaints of chest discomfort. Cardiac enzymes and EKG did not show any acute changes. Your blood pressure was elevated and I recommend you start on amlodipine 2.5 mg once daily in addition to the medications you are currently taking. Based on your symptoms and the evaluation today suspect a large portion of this may be due to reflux. You should have a cardiac stress test which case management will help you make arrangements for. Additionally recommend that you see surgery for further evaluation of reflux possibly including a EGD (scope of your stomach). You can use the Carafate as needed for relief of immediate symptoms. You should take the Protonix 1 tablet twice a day regularly. Print Language: Citizen [place] Sign Out Sign Out Data: Patient Sign Out occurred on 12/29/24 at 05:38. Patient's care was discussed, and care was transferred from Radha Liang MD to Fidel Frey DO. Coding Level of Care Code ED Hr Systems Analyst for Chg Fwd Documented by User: Fidel Frey DO 12/29/24 11:21 HPI - General Adult 2 General: Chief complaint: General Medical Stated complaint: Heartburn\High BP\Headache Time Seen by Provider: 12/29/24 04:35 Related Data Home Medications ?Medication ?Instructions ?Recorded ?Confirmed clonazepam 1 mg tablet 1 mg PO TID PRN Anxiety 12/1212/29/24 Previous Rx's ?Medication ?Instructions ?Recorded meclizine 25 mg tablet 25 mg PO DAILY PRN dizziness #30 12/21/22 tabs pantoprazole 40 mg tablet,delayed 40 mg PO DAILY PRN a diana reflux #60 10/26/24 release (Protonix) tabs emtricitabine 200 mg-tenofovir 1 tab PO DAILY #90 tabs 12/09/24 disoproxil fumarate 300 mg tablet (Truvada) fluoxetine 40 mg capsule 40 mg PO BID #180 caps 12/09 hydrochlorothiazide 12.5 mg tablet 12.5 mg PO DAILY 30 days #90 tabs 12/09/24 levetiracetam 1,000 mg tablet 1,000 mg PO BID #180 tab s 12/09/24 propranolol 40 mg tablet 40 mg PO BID #180 tabs 12/09 sumatriptan succinate 50 mg tablet See Rx Instructions PO .COMPLEX 12/09/24 #30 tabs sildenafil 100 mg tablet (Viagra) 100 mg PO DAILY PRN sexual 12/16/24 activity #30 tabs amlodipine 2.5 mg tablet 2.5 mg PO DAILY #30 tabs sucralfate 1 gram tablet (Carafate) 1 g PO Q6H 4 weeks #112 tabs 12/29/24 Allergies Allergy/AdvReac Type Severity Reaction Status Date / Time No Known Allergies Allergy Verified 12/29/24 04:39 PFS ED 2 PFSH: Medical History History of ankle fracture History of tibial fracture History of recurrent TIAs Seizure History of DVT (deep vein thrombosis) History of cervical fracture History of syphilis Surgical History History of hernia repair History of mandibular surgery Family History Father Cancer upper GI to prostate Other CAD (coronary artery disease) Dementia Diabetes Hyperlipidemia Hypertension Lung disease Psychiatric illness Stroke Denies family history of Clotting disorder Chronic kidney disease (CKD) Anesthesia complication Bleeding disorder Social History Smoking and tobacco/nicotine status: current every day tobacco/nicotine user cigarettes Packs smoked per day: 0.5 Alcohol intake: current Alcohol intake frequency: holidays/special occasions only Alcohol type: beer Substance/Drug Use: former Caregiver/support person: No Lives independently: Yes Marital status: service: No Current occupational status: disabled Current gender identity: Male Special esmer needs: No Agree to transfusion: Yes Course 2 Vital Signs: Vital signs: Vital Signs Temperature 98.7 F 12/29/24 04:36 Pulse Rate 86 12/29/24 09:20 Respiratory Rate 24 H 12/29/24 08:00 Blood Pressure 123/92 12/29/24 09:20 Pulse Oximetry 95 12/29/24 09:20 Oxygen Delivery Me thod Room Air 12/29/24 04:36 MDM - General Adult Medical Decision Making Differential diagnosis for patient with chest pain includes but is not limited to and based on the above HPI, review of systems and physical exam: Pneumonia. unstable angina. angina. Acute coronary syndrome / PR. Pulmonary embolism. Costochondritis / musculoskeletal. Pleurisy. Pericarditis. Esophageal spasm. Pancreatis. Cholecystitis. Orders placed to evaluate differential diagnosis based on the above differential, HPI and physical exam Care assumed at change of shift. Cardiac enzymes and EKG are unremarkable suspect given the nature of his symptoms this is more related to reflux and hiatal hernia. He has only been using her Protonix daily and occasionally twice daily. Recommend that he consistently use twice daily and use Carafate as needed in between for symptoms. Add amlodipine 2.5 mg daily for hypertension. He should follow-up with an both of these regards with his primary care doctor within the week. Will refer to general surgery for possible EGD. Refer for outpatient Lexiscan cardiac stress test. Differential Diagnosis Chest pain due to acute coronary syndrome, PE, GI source of chest pain, pneumonia, pneumothorax Medical Records I reviewed the patient's medical records. Lab Data I reviewed the patient's lab results. 12/29/24 04:45 12/29/24 04:45 Radiology Impressions Chest X-Ray 12/29/24 04:40 IMPRESSION: No acute findings. Laboratory Results WBC 14.56 10^3/uL (3.29-11.43) H 12/29/24 04:45 RBC 5.50 10^6/uL (3.85-5.65) 12/29/24 04:45 Hgb 16.20 g/dL (11.27-16.99) 12/29/24 04:45 Hct 47.6 % (37-53) 12/29/24 04:45 MCV 86.5 fl (82-101) 12/29/24 04:45 MCH 29.5 pg (27-33) 12/29/24 04:45 MCHC 34.0 g/dL (30-55) 12/29/24 04:45 RDW 13.7 % (12.1-15.1) 12/29/24 04:45 Plt Count 330 10^3/cmm (157-399) 12/29/24 04:45 MPV 8.7 fL (7.4-10.4) 12/29/24 04:45 Neut % (Auto) 71.6 % 12/29/24 04:45 Lymph % (Auto) 16.3 % 12/29/24 04:45 [place] % (Auto) 9.5 % 12/29/24 04:45 Eos % (Auto) 1.8 % 12/29/24 04:45 Baso % (Auto) 0.3 % 12/29/24 04:45 Neut # (Auto) 10.43 10^3/uL (1.8-7.7) H 12/29/24 04:45 Lymph # (Auto) 2.4 10^3/uL (0.8-4.8) 12/29/24 04:45 [place] # (Auto) 1.4 10^3/uL (0.2-0.9) H 12/29/24 04:45 Eos # (Auto) 0.3 10^3/uL (0.0-0.8) 12/29/24 04:45 Baso # (Auto) 0.0 10^3/uL (0.0-0.1) 12/29/24 04:45 Nucleated RBC % (auto) 0 % 12/29/24 04:45 Nucleated RBCs # 0.0 /100WBC 12/29/24 04:45 Sodium 141 mmol/L (136-145) 12/29/24 04:45 Potassium 4.4 mmol/L (3.5-5.1) 12/29/24 04:45 Chloride 104 mmol/L (98-107) 12/29/24 04:45 Carbon Dioxide 25 mmol/L (22-29) 12/29/24 04:45 Anion Gap 16.4 (5-19) 12/29/24 04:45 BUN 18 mg/dL (6-20) 12/29/24 04:45 Creatinine 1.0 mg/dL (0.7-1.2) 12/29/24 04:45 GFR Calculation 82.3 mL/min (90-130) L 12/29/24 04:45 Glucose 102 mg/dL (65-115) 12/29/24 04:45 Calculated Osmolality 294 mOsm/kg (285-295) 12/29/24 04:45 Calcium 10.7 mg/dL (8.5-10.5) H 12/29/24 04:45 Total Bilirubin 0.4 mg/dL (0.15-1.2) 12/29/24 04:45 AST 21 U/L (0-40) 12/29/24 04:45 ALT 27 U/L (0-41) 12/29/24 04:45 Alkaline Phosphatase 105 U/L (40-130) 12/29/24 04:45 Troponin T Baseline 9 ng/L (0-15) 12/29/24 04:45 Troponin T 120 Minute 7.80 ng/L (0-15) 12/29/24 07:00 Delta Troponin T -1.20 ABS# (0-10) L 12/29/24 07:00 Total Protein 6.9 g/dL (6.6-8.7) 12/29/24 04:45 Albumin 4.5 g/dL (3.5-5.2) 12/29/24 04:45 Globulin 2.4 g/dL (1.3-4.6) 12/29/24 04:45 All radiology interpretation(s) finalized by discharge Discharge Plan Discharge Patient Disposition: Home Clinical Impression: Atypical chest pain, Chest pain due to GERD, Benign essential HTN Condition: Stable Prescriptions: New sucralfate [Carafate] 1 gram tablet 1 g PO Q6H 28 Days Qty: 112 0RF amlodipine 2.5 mg tablet 2.5 mg PO DAILY Qty: 30 0RF No Action meclizine 25 mg tablet 25 mg PO DAILY PRN (Reason: dizziness) Qty: 30 0RF emtricitabine-tenofovir (TDF) [Truvada] 200-300 mg tablet 1 tab PO DAILY Qty: 90 2RF hydrochlorothiazide 12.5 mg tablet 12.5 mg PO DAILY 30 Days Qty: 90 1RF fluoxetine 40 mg capsule 40 mg PO BID Qty: 180 1RF Rx Instructions: administer in the morning and at noon/midday levetiracetam 1,000 mg tablet 1,000 mg PO BID Qty: 180 1RF propranolol 40 mg tablet 40 mg PO BID Qty: 180 1RF sumatriptan succinate 50 mg tablet See Rx Instructions PO .COMPLEX Qty: 30 0RF Rx Instructions: take 1 tab at onset of headache; if no relief may repeat 1 tab after at least 2 hrs; max = 4 tabs/24 hr PO sildenafil [Viagra] 100 mg tablet 100 mg PO DAILY PRN (Reason: sexual activity) Qty: 30 0RF Rx Instructions: administer 30 minutes to 4 hours before activity pantoprazole [Protonix] 40 mg tablet,delayed release (DR/EC) 40 mg PO DAILY PRN (Reason: acid reflux) Qty: 60 0RF clonazepam 1 mg tablet 1 mg PO TID PRN (Reason: Anxiety) Discharge Orders: Discharge ED (Routine); Ordered 12/29/24 Ordered By: Fidel Frey Referrals: Addi Hoffman MD [Primary Care Provider] - Discharge Diet: As Directed Discharge Activity: Resume usual activity Patient Instructions: Diet for Stomach Ulcers and Gastritis (ED), GERD (Gastroesophageal Reflux Disease) (ED), Opioid Safety, Pain Management Activity Restrictions/Additional Instructions: Thank you for choosing [facility] for your healthcare needs today. It is very important that you follow up as instructed or that you return to the Emergency Department should you have concerns or if your condition changes or worsens in any way. You were seen in the emergency room with complaints of chest discomfort. Cardiac enzymes and EKG did not show any acute changes. Your blood pressure was elevated and I recommend you start on amlodipine 2.5 mg once daily in addition to the medications you are currently taking. Based on your symptoms and the evaluation today suspect a large portion of this may be due to reflux. You should have a cardiac stress test which case management will help you make arrangements for. Additionally recommend that you see surgery for further evaluation of reflux possibly including a EGD (scope of your stomach). You can use the Carafate as needed for relief of immediate symptoms. You should take the Protonix 1 tablet twice a day regularly. Print Language: Citizen [place] Sign Out Sign Out Data: Patient Sign Out occurred on 12/29/24 at 05:38. Patient's care was discussed, and care was transferred from Radha Liang MD to Fidel Frey DO. Coding Level of Care Code ED Hr Systems Analyst for Ted Teague
[2024-12-29 04:59] LABS: Basophils % 0.3 %; Eosinophils # 0.3 10^3/uL (0.0-0.8); Eosinophils % 1.8 %; Hematocrit 47.6 % (37-53); Lymphocytes # 2.4 10^3/uL (0.8-4.8); Lymphocytes % 16.3 %; Mean Corpuscular Hemoglobin 29.5 pg (27-33); Mean Corpuscular Volume 86.5 fl (82-101); Mean Platelet Volume 8.7 fL (7.4-10.4); Monocytes # 1.4 10^3/uL (0.2-0.9); Monocytes % 9.5 %; Neutrophils # 10.43 10^3/uL (1.8-7.7); Neutrophils % 71.6 %; Nucleated Red Blood Cells % 0 %; Platelet Count 330 10^3/cmm (157-399); Red Cell Distribution Width 13.7 % (12.1-15.1); White Blood Count 14.56 10^3/uL (3.29-11.43)
[2024-12-29 05:16] LABS: Troponin(5th) Baseline 9 ng/L (0-15)
[2024-12-29 05:19] LABS: Alanine Aminotransferase 27 U/L (0-41); Albumin Level 4.5 g/dL (3.5-5.2); Alkaline Phosphatase 105 U/L (40-130); Anion Gap 16.4 (5-19); Aspartate Amino Transferase 21 U/L (0-40); Blood Urea Nitrogen 18 mg/dL (6-20); Calcium 10.7 mg/dL (8.5-10.5); Carbon Dioxide 25 mmol/L (22-29); Chloride 104 mmol/L (98-107); Creatinine Clr Calc Pharmacy 133.6764; Globulin 2.4 g/dL (1.3-4.6); Glomerular Filtration Rate 82.3 mL/min (90-130); Glucose 102 mg/dL (65-115); Osmolality Calculated 294 mOsm/kg (285-295); Potassium 4.4 mmol/L (3.5-5.1); Sodium 141 mmol/L (136-145); Total Bilirubin 0.4 mg/dL (0.15-1.2); Total Protein 6.9 g/dL (6.6-8.7)
[2024-12-29] MEDS: diphenhydrAMINE 50 mg/mL SDV 1mL IVP (05:22)
[2024-12-29] MEDS: ketorolac 30 mg/mL INJ IVP (05:22)
[2024-12-29] MEDS: metoclopramide 5 mg/mL SDV 2 mL 10 MG IVP (05:22)
--- NOTE | 2024-12-29 06:41 | ECG_ITS ---
[facility] Test Date: 2024-12-29 Pat Name: Joaquín Burt Department: Room: Gender: Male Sports Development Officer: : 1985-05-01 Requested By: Radha Baxter Order Number: [id number] Mike MD: Kayla Morales M.D. Measurements Intervals [place] Rate: 82 P: 42 MN: 176 QRS: 33 QRSD: 97 T: 0 QT: 361 QTc: 424 Interpretive Statements SINUS RHYTHM NONSPECIFIC T-WAVE ABNORMALITY Compared to ECG 12/29/2024 04:37:27 T-wave abnormality now present Electronically Signed On 12-29-2024 19:27:27 CDT by Kayla Morales M.D. [email or web address]
[2024-12-29] MEDS: lidocaine 2% viscous 15 ML, aluminum-mag hydrox-simethicon 30 ML, sucralfate oral liq 1 GM PO (08:04)
--- NOTE | 2024-12-30 09:19 | DCPLANNER ---
Message sent to General Surgery for GERD
--- NOTE | 2024-12-31 16:15 | DCPLANNER ---
faxed outpatient lexiscan order to scheduling
== END 2024-12-29 09:22 | disposition home or self-care (01) ==
PROVIDERS: Emergency Medicine; Emergency Provider Family Medicine; PCP Family Medicine
DX: R07.89 Other chest pain (principal); K21.9 Gastro-esophageal reflux disease without esophagitis; I10 Essential (primary) hypertension; F17.210 Nicotine dependence, cigarettes, uncomplicated
CPT/HCPCS: 36415; 71045; 80053; 84484; 85025; 93005; 96374; 96375; 99285; J1200; J1885; J2765; J9999

== ENCOUNTER → 2025-01-06 07:59 | Outpatient (BNVA) | payer MEDICAID, SELFPAY | PROVIDERS: PCP Family Medicine; Visit Provider Student in an Organized Health Care Education/Training Program | DX: M25.512 Pain in left shoulder (principal); M75.42 Impingement syndrome of left shoulder; G89.29 Other chronic pain | CPT/HCPCS: 73030 ==

== ENCOUNTER 2025-01-19 08:50 | Day surgery (SDC) | payer MEDICAID, SELFPAY ==
[2025-01-19 09:18] VITALS: BP 117/82; PULSE 77; RESP 16; TEMP 36.1; O2SAT 95; BMI 34.4
--- NOTE | 2025-01-19 09:54 | W.PM.OPSUD ---
Surgery/Procedure H&P Update DATE OF PROCEDURE: January 19, 2025 DATE H&P PERFORMED: 01/04/25 H&P UPDATE INFORMATION: I have reviewed H&P completed within last 30 days, I have examined patient prior to procedure and No changes to prior documentation PLANNED PROCEDURE: Operation Date: 01/19/25 08:45 Proposed Procedures p EGD 54653 K21.9(Not Applicable) - Shukri Cortes MD
--- NOTE | 2025-01-19 10:24 | ANES.PREANE2 ---
Pre-Anesthetic Assessment Height/Weight: Height 1.88 m Weight 121.563 kg Temp Pulse Resp BP Pulse Ox O2 Del Method 97.0 F L 77 16 117/82 95 Room Air 01/19/25 09:18 01/19/25 09:18 01/19/25 09:18 01/19/25 09:18 01/19/25 09:18 01/19/25 09:18 Preop Diagnosis: Dysphagia Operation Date: 01/19/25 08:45 Proposed Procedures p EGD 70039 K21.9(Not Applicable) - Shukri Cortes MD Was Beta Valeria taken within 24 hours: Yes Was Clonidine taken within 24 hours: N/A Last intake: Intake Last Liquid Date 01/18/25 Last Liquid Time 22:00 Last Solid Date 01/18/25 Last Solid Time 19:00 Social Tobacco Exam alert, oriented x 3, clear to auscultation bilaterally and regular rate & rhythm Airway Submandibular: within normal limits Cervical ROM: within normal limits Mallampati: Class II Dentition: full History/ROS No significant history except as noted and No significant complaints Pulmonary None reported CV/HEM Arrythmia and Hypertension None reported Hepatic None reported GI Gastroesophageal Reflux Disease Metabolic Diabetes Mellitus and Morbid Obesity [facility] None reported Neuropsych Seizure Anesthetic Plan ASA status: 3 Anesthesia: Anesthesia Evaluation and MAC Risk of > 500 ml blood loss (7ml/kg in children): No Medications/Allergies Home Medications ?Medication ?Instructions ?Recorded ?Confirmed ?Last Taken ?Type meclizine 25 mg tablet 25 mg PO DAILY PRN dizziness #30 12/21/22 01/19/25 01/13/25 Rx tabs emtricitabine 200 mg-tenofovir 1 tab PO DAILY #90 tabs 12/09/24 01/19/25 01/18/25 Rx disoproxil fumarate 300 mg tablet (Truvada) fluoxetine 40 mg capsule 40 mg PO BID #180 caps 12/09/24 01/19/25 01/18/25 Rx hydrochlorothiazide 12.5 mg tablet 12.5 mg PO DAILY 30 days #90 tabs 12/09/24 01/19/25 01/18/25 Rx propranolol 40 mg tablet 40 mg PO BID #180 tabs 12/09/24 01/19/25 01/19/25 Rx sumatriptan succinate 50 mg tablet See Rx Instructions PO .COMPLEX 12/09/24 01/19/25 01/13/25 Rx #30 tabs sildenafil 100 mg tablet (Viagra) 100 mg PO DAILY PRN sexual 12/16/24 01/19/25 Unknown Rx activity #30 tabs amlodipine 2.5 mg tablet 2.5 mg PO DAILY 01/01/25 01/19/25 01/19/25 History sucralfate 1 gram tablet 1 g PO Q6H PRN Acid Reflux 01/01/25 01/19/25 01/13/25 History clonazepam 1 mg tablet 1 mg PO TID PRN Anxiety #90 tabs 01/06/25 01/19/25 01/19/25 Rx levetiracetam 1,000 mg tablet 1,500 mg PO BID 01/13/25 01/19/25 01/19/25 History pantoprazole 40 mg tablet,delayed 40 mg PO BID PRN acid reflux 01/13/25 01/19/25 01/13/25 History release (Protonix) Allergies Allergy/AdvReac Type Severity Reaction Status Date / Time No Known Allergies Allergy Verified 01/06/25 08:02 [facility] Anesthesia Medical History History of ankle fracture History of tibial fracture History of recurrent TIAs Seizure History of DVT (deep vein thrombosis) History of cervical fracture History of syphilis Surgical History History of hernia repair History of mandibular surgery Family History Father Cancer upper GI to prostate Other CAD (coronary artery disease) Dementia Diabetes Hyperlipidemia Hypertension Lung disease Psychiatric illness Stroke Denies family history of Clotting disorder Chronic kidney disease (CKD) Anesthesia complication Bleeding disorder Social History Smoking and tobacco/nicotine status: current every day tobacco/nicotine user cigarettes Packs smoked per day: 0.5 Alcohol intake: current Alcohol intake frequency: holidays/special occasions only Alcohol type: beer Substance/Drug Use: former Caregiver/support person: No Lives independently: Yes Marital status: service: No Current occupational status: disabled Current gender identity: Male Special esmer needs: No Agree to transfusion: Yes Data Anesthesia Cardiac Studies: No Data to Display
[2025-01-19] MEDS: sodium chloride 0.9% 250 ML 30 ML IV (10:25)
[2025-01-19 10:41] VITALS: BP 112/67; PULSE 66; RESP 16; TEMP 36.2; O2SAT 95
[2025-01-19 10:52] VITALS: BP 107/85; PULSE 71; RESP 16; O2SAT 95
[2025-01-19 11:02] VITALS: BP 127/84; PULSE 73; RESP 16; O2SAT 94
--- NOTE | 2025-01-19 11:11 | ANE.PACU2 ---
Inpatient post-anesthesia follow up: Airway intact: Yes Vital signs: Temperature 97.1 F Pulse Rate 73 Respiratory Rate 16 Blood Pressure 127/84 Pulse Oximetry 94 Oxygen Delivery Me thod Room Air Oxygen Flow Rate Fraction of Inspir ed Oxygen Hydration adequate: Yes Nausea and vomiting: No Pain level: 1 Mental status: Baseline
== END 2025-01-19 11:11 | disposition home or self-care (01) ==
PROVIDERS: PCP Family Medicine; Visit Provider Student in an Organized Health Care Education/Training Program
PROC: 0DJ08ZZ Inspection of Upper Intestinal Tract, Via Natural or Artificial Opening Endoscopic (ICD-10-PCS; principal; 2025-01-19 08:45)
DX: K29.50 Unspecified chronic gastritis without bleeding (principal); K21.9 Gastro-esophageal reflux disease without esophagitis; I10 Essential (primary) hypertension; E11.9 Type 2 diabetes mellitus without complications; F17.210 Nicotine dependence, cigarettes, uncomplicated; E66.01 Morbid (severe) obesity due to excess calories; Z68.34 Body mass index [BMI] 34.0-34.9, adult; Z79.899 Other long term (current) drug therapy; Z86.718 Personal history of other venous thrombosis and embolism
CPT/HCPCS: 43239; 88305; J2704; J7030; J7050

== ENCOUNTER 2025-08-09 16:08 | Outpatient (CLI) | payer MEDICAID, SELFPAY ==
--- NOTE | 2025-08-09 16:23 | US_ITS ---
WS: [id number] ULTRASOUND SOFT TISSUES RIGHT arm HISTORY: RT ARM LUMP COMPARISON: None available. TECHNIQUE: 2-D and color Doppler imaging is submitted. Ultrasound performed in the area of the palpable abnormality. Images are labeled posterior RIGHT arm. There is a superficial subcutaneous soft tissue mass which is elliptical in shape. This mass measures 2.2 x 0.5 x 2.5 cm. No increased vascularity. US/US soft tissue/extremity 08190 IMPRESSION: 1. Complex superficial subcutaneous mass measures 2.2 x 0.5 x 2.5 cm. This is most likely a hematoma. Patient does describe this mass as decreasing in size.
== END 2025-08-09 16:09 | disposition home or self-care (01) ==
LOC: RAD 16:09
PROVIDERS: PCP Pediatrics; Visit Provider Nurse Practitioner Family
DX: R22.31 Localized swelling, mass and lump, right upper limb (principal)
CPT/HCPCS: 76882